=== PATIENT | male | born 1960 ===

== ENCOUNTER 2016-07-05 11:29 | Inpatient (IN) | payer OTHER ==
[~2016-07-05] VITALS: Ht 180.3 cm; Wt 106.0 kg
[2016-07-05] MEDS ORDERED: SODIUM CHLORIDE 0.9% 1L BAG IV* STA (11:33)
[2016-07-05] MEDS ORDERED: CEFEPIME 2GM/50 ML (PMX) 50 ML IVPB STA (11:33)
[2016-07-05] MEDS ORDERED: DEXAMETHASONE 10 MG/ML 1 ML INJ IV ONE (12:00)
[2016-07-05] MEDS ORDERED: VANCOMYCIN 1 GM (PMX) 250 ML IVPB ONE (12:00)
--- NOTE | 2016-07-05 12:05 | RADRPT ---
PROCEDURE: XR Chest. CLINICAL INDICATION: Chest pain TECHNIQUE: Single frontal view of the chest. COMPARISON: No priorchest radiograph. FINDINGS: The lungs are clear. No pleural effusion or pneumothorax. Heart size is magnified. No acute osseous abnormalities. IMPRESSION: No acute abnormalities. RPTAT: AADD .José Miguel Lowe MD, MD Date Time Electronically viewed and signed by .José Miguel Lowe MD, MD on 07/05/2016 12:05 .B/
[2016-07-05 12:56] LABS: BASOPHILS % 0.1 % (0.0-2.0); HEMATOCRIT 37.1 % (42.0-52.0); HEMOGLOBIN 12.9 g/dl (14.0-18.0); LYMPHOCYTES # 0.8 10^3/ul (0.8-2.9); MEAN CORPUSCULAR HEMOGLOBIN 29.3 pg (29.0-33.0); MEAN CORPUSCULAR VOLUME 83.7 fl (82.0-101.0); MONOCYTE # 1.9 10^3/ul (0.3-0.9); NEUTROPHIL # 24.2 10^3/ul (1.6-7.5); NEUTROPHILS % 89.9 % (39.0-77.0); PLATELET COUNT 186 10^3/UL (140-440); RED BLOOD COUNT 4.42 10^6/ul (4.70-6.10); RED CELL DISTRIBUTION WIDTH 14.2 % (11.5-14.5); UNCORRECTED WBC 26.9 10^3/ul (4.8-10.8); WHITE BLOOD COUNT 26.9 10^3/ul (4.8-10.8)
[2016-07-05 12:58] LABS: CONDITION 1; LH ANALYZER COMMENTS 1; SUSPECT 1
[2016-07-05 13:09] LABS: ALBUMIN 3.2 g/dl (3.3-4.9)
[2016-07-05 13:10] LABS: INR 1.17; POTASSIUM 4.6 mmol/L (3.5-5.1); PT RATIO 1.2
[2016-07-05 13:11] LABS: PARTIAL THROMBOPLASTIN TIME 33.7 Sec (25.0-35.0)
[2016-07-05 13:12] LABS: ALBUMIN/GLOBULIN RATIO 0.71; BILIRUBIN,INDIRECT 0.2 mg/dl (0-1.1); BILIRUBIN,TOTAL 0.2 mg/dl (0.2-1.3); CREATININE 5.25 mg/dl (0.61-1.24); TOTAL PROTEIN 7.7 g/dl (6.1-8.1)
[2016-07-05 13:13] LABS: CALCIUM 8.7 mg/dl (8.4-10.2)
[2016-07-05 13:25] LABS: TROPONIN-I 0.043 ng/ml (0.00-0.12)
--- NOTE | 2016-07-05 14:36 | RADRPT ---
PROCEDURE: CT facial bones CLINICAL INDICATION: Facial swelling and pain. Cellulitis. TECHNIQUE: Multiphase CT scan of the face was performed in the axial plane. Coronal and sagittal re-formations were performed. The calculated radiation dose measures 527.07 mGy centimeters. The CTD I measures 29.54 mGy One or more of the following dose reduction techniques were used: Automated exposure control. Adjustment of the mA and/or kV according to patient size. Use of iterative reconstruction technique. COMPARISON: None FINDINGS: There is diffuse symmetric soft tissue swelling and subcutaneous fatty stranding of the face. There are multiple mildly prominent lymph nodes in bilateral neck. The mandible is identified demonstrati ng no evidence of fracture or bony dysplasia. The mid face and bony orbits demonstrate no evidence of acute fracture. Evaluation of the orbits demonstrates the globes to be normal in their size, sha pe, and attenuation bilaterally. No definite intra or extraconal soft tissue masses are seen. The optic nerve and nerve sheath complexes bilaterally appear unremarkable. Moderate mucosal disease is seen in the frontal, ethmoid, right maxillary and right sphenoid sinuses. Mild mucosal thickening is seen in the left maxillary and left sphenoid sinuses. There is no air-fluid level in the paranasa l sinuses. IMPRESSION: 1. Diffuse symmetric soft tissue swelling and subcutaneous fatty stranding of the face. 2. Moderate mucosal disease in paranasal sinuses. No air-fluid level is seen to suggest acute sinu sitis. 3. No periodontal abscess. 4. Multiple mildly prominent lymph nodes in bilateral neck. RPTAT: BB .Dudley Terrell MD, MD Date Time Electronically viewed and signed by .Dudley Terrell MD, on 07/05/2016 14:35 .O/
--- NOTE | 2016-07-05 15:18 | ERA ---
ER Documentation Chief Complaint Date/Time DATE: 07/05/16 TIME: 15:13 Chief Complaint BIB RA FOR EVAL OF BILAT EYE AND FACE SWELLING AND REDNESS HPI Patient is a 55-year-old male he reports swelling of his entire face that started today. He states that he had noticed some crusting on his cheek over the last couple days but when he went to bed he was normal last night. He says that he can see out of his eyes but they are both a little blurry. He did not know that he was running a fever until he got here. He says he is not sure what might be causing this on his face. He says it is somewhat painful. He denies any chest pain, shortness of breath, sore throat, or otalgia. He says earlier he felt like his tongue was a little bit swollen but it does not feel that way anymore. He is able to tolerate his own secretions. He denies any abdominal pain, nausea, vomiting, or diarrhea. He denies any sick contacts. Nothing seems to make this better or worse. ROS All systems reviewed and are negative except as per history of present illness. Medications Home Meds No Active Prescriptions or Reported Meds Allergies Allergies: Coded Allergies: No Known Allergy (Unverified , 07/05/16) PMhx/Soc Hx Miscellaneous Medical Probl: Yes (HEP C) Hx Alcohol Use: No Hx Substance Use: No Hx Tobacco Use: Yes Smoking Status: Current every day smoker FmHx Family History: diabetes Physical Exam Vitals Vital Signs Date Time Temp Pulse Resp B/P Pulse Ox O2 Delivery O2 Flow Rate FiO2 07/05/16 15:12 100.8 07/05/16 14:30 102 19 144/83 96 Room Air 07/05/16 11:41 102.9 110 20 135/70 99 07/05/16 11:41 Nasal Cannula 2 Physical Exam Const: [] Head: Atraumatic Eyes: Normal Conjunctiva ENT: Normal External Ears, Nose and Mouth. Neck: Full range of motion..~ No meningismus. Resp: Clear to auscultation bilaterally Cardio: Regular rate and rhythm, no murmurs Abd: Soft, non tender, non distended. Normal bowel sounds Skin: No petechiae or rashes Back: No midline or flank tenderness Ext: No cyanosis, or edema Neur: Awake and alert Psych: Normal Mood and Affect Result Diagram: 07/05/16 1235 07/05/16 1235 Results 24 hrs Laboratory Tests Test 07/05/16 12:35 Activated Partial Thromboplast Time 33.7Sec Alanine Aminotransferase (ALT/SGPT) 48IU/L Albumin 3.2g/dl Albumin/Globulin Ratio 0.71 Alkaline Phosphatase 100IU/L Anion Gap 21 Aspartate Amino Transf (AST/SGOT) 117IU/L Basophils # 0.010^3/ul Basophils % 0.1% Blood Urea Nitrogen 102mg/dl Calcium Level 8.7mg/dl Carbon Dioxide Level 17mmol/L Chloride Level 95mmol/L Creatinine 5.25mg/dl Direct Bilirubin 0.00mg/dl Eosinophils # 0.010^3/ul Eosinophils % 0.0% Globulin 4.50g/dl Glucose Level 125mg/dl Hematocrit 37.1% Hemoglobin 12.9g/dl INR International Normalized Ratio 1.17 Indirect Bilirubin 0.2mg/dl Lactic Acid Level 0.9mmol/L Lymphocytes # 0.810^3/ul Lymphocytes % 3.0% Mean Corpuscular Hemoglobin 29.3pg Mean Corpuscular Hemoglobin Concent 35.0g/dl Mean Corpuscular Volume 83.7fl Mean Platelet Volume 8.0fl Monocytes # 1.910^3/ul Monocytes % 7.0% Neutrophils # 24.210^3/ul Neutrophils % 89.9% Nucleated Red Blood Cells # 0.010^3/ul Nucleated Red Blood Cells % 0.0/100WBC Platelet Count 02716^3/UL Potassium Level 4.6mmol/L Prothrombin Time 15.0Sec Prothrombin Time Ratio 1.2 Red Blood Count 4.4210^6/ul Red Cell Distribution Width 14.2% Sodium Level 128mmol/L Total Bilirubin 0.2mg/dl Total Protein 7.7g/dl Troponin I 0.043ng/ml White Blood Count 26.910^3/ul Current Medications Medications (Trade) Dose Ordered Sig/Shirin Route PRN Reason Start Time Stop Time Status Last Admin Dose Admin Sodium Chloride 3100 ml 3,100 ml BOLUS OVER 2 HOURS STAT IV* 07/05/16 11:33 07/05/16 11:38 DC 07/05/16 13:41 Cefepime HCl 50 ml @ 100 mls/hr ONCE STAT IVPB 07/05/16 11:33 07/05/16 12:02 DC 07/05/16 13:41 Vancomycin HCl (Vancocin) 250 ml @ 125 mls/hr ONCE ONCE IVPB 07/05/16 12:00 07/05/16 13:59 DC 07/05/16 14:31 Dexamethasone (Decadron) 6 mg ONCE ONCE IV 07/05/16 12:00 07/05/16 12:01 DC 07/05/16 13:41 Procedures/MDM EKG: Rate/Rhythm: [Normal Sinus Rhythm at 100 bpm QRS, ST, T-waves: No changes consistent w/ acute ischemia Impression: No evidence of ischemia or arrhythmia 1515: Patient remains hemodynamically stable. There is no significant change in his exam. His airway remains patent. I will speak with the hospitalist about admission. Departure Diagnosis: Primary Impression: Cellulitis diffuse, face Additional Impressions: Hepatitis C Qualified Code: B18.2 - Chronic hepatitis C without hepatic coma Renal failure Condition: KEIRA Page Jul 05, 2016 15:18
[2016-07-05] MEDS ORDERED: IBUPROFEN 800 MG TAB PO ONE (15:30)
[2016-07-05] MEDS ORDERED: ACETAMINOPHEN 325 MG TAB PO PRN ×2 (15:30→17:30)
[2016-07-05] MEDS ORDERED: ONDANSETRON 4 MG INJ IV PRN ×2 (15:30→17:30)
[2016-07-05] MEDS ORDERED: PIPER-TAZO 3.375 GM IV (PMX) 100 ML IVPB SCH (17:30)
[2016-07-05] MEDS ORDERED: VANCOMYCIN IV PER PHARMACY XX SCH (17:30)
[2016-07-05 18:09] LABS: ADD UMIC YES; URINE BILIRUBIN (Dip) 1+ (NEGATIVE); URINE BLOOD (Dip) 3+ (NEGATIVE); URINE GLUCOSE (Dip) NEGATIVE (NEGATIVE); URINE KETONES (Dip) TRACE (NEGATIVE); URINE LEUKOCYTE ESTERASE (Dip) TRACE (NEGATIVE); URINE NITRITE (Dip) NEGATIVE (NEGATIVE); URINE TOTAL PROTEIN (Dip) 4+ (NEGATIVE); URINE UROBILINOGEN (Dip) 0.2 E.U./dL (0.1-1.0)
[2016-07-05 18:53] LABS: URINE COLOR DARK YELLOW (YELLOW)
[2016-07-05 18:57] LABS: BACTERIA,URINE MODERATE; TRANSITIONAL EPI CELLS,URINE MANY; URINE RBCS >200 /HPF ([, 0])
[2016-07-05 18:58] LABS: ICTOTEST NEGATIVE (NEGATIVE)
--- NOTE | 2016-07-05 19:01 | RADRPT ---
PROCEDURE: Renal US. CLINICAL INDICATION: Acute kidney injury. TECHNIQUE: Multiple sonographic images of the kidneys were obtained. The images were reviewed on a PACS workstation. COMPARISON: No prior studies are available for comparison. FINDINGS: The kidneys are well visualized. The right kidney measures 13.2 x 6.8 x 7.1 cm. The left kidney jim ures 14.0 x 7.4 x 7.7 cm. There are no focal areas of abnormal echogenicity. There is no evidence fo r obstructive uropathy. IMPRESSION: 1. Normal appearance of the kidneys. RPTAT: HTAR .Julius Leahy MD, MD Date Time Electronically viewed and signed by .Julius Leahy MD, on 07/05/2016 19:01 .R/
[2016-07-05 19:59] LABS: POTASSIUM,URINE RANDOM 49.8 mmol/L (25-125)
[2016-07-05] MEDS: SOD CHLORIDE 0.9% 1,000 ML IV SCH (20:54)
[2016-07-05 20:58] VITALS: TEMP 98.4
[2016-07-05 22:29] VITALS: Ht 180.3 cm; Wt 106.0 kg
[2016-07-05 22:45] VITALS: BP 158/85; RESP 18
--- NOTE | 2016-07-05 22:45 | HP ---
Date/Time of Note Date/Time of Note DATE: 07/05/16 TIME: 21:21 Assessment/Plan VTE Prophylaxis VTE Prophylaxis Intervention: heparin Assessment/Plan Assessment/Plan IMPRESSION 1. Sepsis, as evidenced by fever and tachycardia 2/2 facial cellulitis 2. Cellulitis of face 3. Presumed acute on CKD 4. Metabolic Acidosis PLAN Admit to tele Broad spectrum abx Blood, urine and eye discharge culture IV fluid Nephrology and ID consult Renal u/s and urine electrolytes Avoid nephrotoxins and renally dose all meds. HPI/ROS Admit Date/Time Admit Date/Time Jul 05, 2016 at 15:12 Hx of Present Illness Patient is a 55-year-old male who presented to ER with facial swelling, crusting and redness. He said he first noticed it about 3 days ago. Denied similar conditions in the past. He denied fever, chills, chest pain, shortness of breath, N/V or diarrhea. He appears disheveled and said he is "paula homeless ". ER course: he was found to be febrile with temp of 102.9 and tachycardic with a HR of 110. Lab shows WBC of 27K, cr 5.2, BUN 100 and HCO3 of 17. He denied hx of renal disease when told about lab findings and said it is probably because he was dehydrated. he was given IV fluid, Cefepime, Vancomycin and zofran. Of note, he was also given 800mg of Ibuprofen. CT face showed soft tissue swelling , multiple mildly prominent bilateral neck lymph nodes and moderate mucosal disease in paranasal sinuses. CXR is clear and UA shows 4+ protein. . PMH/Family/Social Past Medical History Medical History: no pertinent history Past Surgical History Past Surgical Hx: other (right leg I&D) Social History Alcohol Use: occasionally Smoking Status: Current every day smoker Drug Use: none Exam/Review of Systems Vital Signs Vitals Vital Signs Date Time Temp Pulse Resp B/P Pulse Ox O2 Delivery O2 Flow Rate FiO2 07/05/16 20:58 98.4 56 16 141/67 97 Room Air 07/05/16 11:41 2 Exam Constitutional: alert, other (discheveled and appears tired. he is cooperative) Head: atraumatic, normocephalic Eyes: other (periorbital swelling with yellowish discharge from both eyes) ENMT: other (facial erythema, swelling and crusting ) Respiratory: clear to auscultation, normal air movement Cardiovascular: other (tachycardic with regular rhythm) Gastrointestinal: non-tender, soft Extremities: other (right calf with well healed old scar ) Labs Result Diagram: 07/05/16 1235 07/05/16 1235 Medications Medications Current Medications Ondansetron HCl (Zofran Inj) 4 mg Q6H PRN IV NAUSEA AND/OR VOMITING; Start 07/05 at 17:30 Acetaminophen (Tylenol Tab) 650 mg Q6H PRN PO PAIN LEVEL 1-3 OR FEVER; Start at 17:30 Morphine Sulfate (morphine) 4 mg Q4H PRN IV pain; Start 07/05/16 at 17:30 Heparin Sodium (Porcine) 5000 unit 5,000 unit Q12 SC ; Start 07/05/16 at 21:00 Piperacillin Sod/ Tazobactam Sod 50 ml @ 100 mls/hr Q8 IVPB ; Start 07/05/16 at 22:00 Sodium Chloride (NS) 1,000 ml @ 100 mls/hr Q10H IV Last administered on t 20:54; Admin Dose 100 MLS/HR; Start 07/05/16 at 18:30 DAREK CALLES MD Jul 05, 2016 22:30
[2016-07-05] MEDS: HEPARIN 5,000 UNIT/0.5 ML SYG SC SCH (23:13)
[2016-07-05] MEDS: PIPER-TAZO 2.25 GM (PMX) 50 ML IVPB SCH (23:20)
[2016-07-05 23:30] VITALS: BP 145/78; PULSE 71; RESP 20
[2016-07-06] MEDS: SOD CHLORIDE 0.9% 1,000 ML IV SCH ×2 (04:30→14:30)
[2016-07-06] MEDS: PIPER-TAZO 2.25 GM (PMX) 50 ML IVPB SCH ×3 (06:00→21:32)
--- NOTE | 2016-07-06 07:26 | CONS ---
Date/Time of Note Date/Time of Note DATE: 07/06/16 TIME: 07:15 Assessment/Plan Assessment/Plan Chief Complaint/Hosp Course 1. Facial cellultiis 2. Acute renal failure 3. metabolic acidosis from 2 4. Leukocytosis 5. Abnormal urinary sediment 6. chronic smoker 7. chronic hepatits c 8. Hypoalbuminemia Facial cellultis, sepsis and dehyration explains part of this but consider post infectious gn, hepatits c related nephropathy in addition. Patient with hypoalbuminemia and may have nephrotic range proteinuria. Impact of antibiotics ahd hyration remains to be seen. Rec: c3,c4, iv hydration, antibiotics repeat urine urine culture follow up labs liver ultrasound to evaluate for hepatoma 'alpha feto protein may need renal bx if doesn't turn around with therapy. Problems: Consultation Date/Type/Reason Admit Date/Time Jul 05, 2016 at 15:12 Type of Consultation: Nephrology Reason for Consultation Evaluation of renal failure Hx of Present Illness 55 homeless male unaware of prior renal disease presents with 1 weeks of chills , facial cellulitis and abnormal renal function noted below. He has no gross hematuria, flank pain, dysuria or hesitancy. Renal ultrasound normal and urine analysis abnormal with 4 +proteinuria, marked microhematuria and 3+ blood and pyuria and no casts noted. He stated he was dehyrrated on admission and urinary sodium was 17. He has no joint pains, no sob or other pain. IV fluid and antibiotics initiated but iv came out and awaiting pic line placement as he states he was a frequent blood donor. He has a history of hepatits c but denies iv drug use and denied alcohol use of significance. He is a .5 ppd smoker. He was admitted for acute renal failure, facial cellulitis and renal consult requested. Constitutional: chills, febrile Eyes: redness Respiratory: No cough, No no complaints, No other, No pain, No pleuritic pain, No shortness of breath, No sputum, No wheezing Cardiovascular: No chest pain, No edema, No lightheadedness, No no complaints, No orthopenea, No other, No palpitations, No paroxysmal nocturnal dyspnea Gastrointestinal: diarrhea Genitourinary: No bleeding, No discharge, No dysuria, No flank pain, No hematuria, No no complaints, No other Musculoskeletal: No back pain, No bone/joint pain, No neck pain, No no complaints, No other, No restricted range of motion, No swelling Neurologic: No confusion, No dizziness, No focal-weakness, No headache, No no complaints, No other, No seizure, No syncope Endocrine: No dry skin, No no complaints, No other, No polydypsia, No polyuria , No temp intolerance Lymphatic: No adenopathy, No lymphadema, No no complaints, No other, No tender nodes Past Medical History Medical History: no pertinent history Past Surgical History Past Surgical Hx: other (right leg I&D) Family History Significant Family History: no pertinent family hx Social History Alcohol Use: occasionally Smoking Status: Current every day smoker Drug Use: none Exam/Review of Systems Vital Signs Vitals Vital Signs Date Time Temp Pulse Resp B/P Pulse Ox O2 Delivery O2 Flow Rate FiO2 07/05/16 23:30 97.2 71 20 145/78 07/05/16 22:45 99 07/05/16 20:58 Room Air 07/05/16 11:41 2 Intake and Output 07/05/16 07/05/16 07/06/16 15:00 23:00 07:00 Intake Total 970 ml Balance 970 ml Exam Constitutional: alert, well developed Psych: no complaints Head: normocephalic, other ENMT: other (redness of face and swelling diffusely) Cardiovascular: nl pulses, regular rate and rhythm Gastrointestinal: nl liver, spleen, non-tender, soft Extremities: No calf tenderness, No clubbing, No cyanosis, No edema, No normal pulses, No other, No palpable cord, No pitting pedal edema, No tenderness Neurological: No K [employer] II-XII intact, No DTR's symmetric, No confused, No focal weakness, No lethargic, No nl mental status, No nl speech, No nl strength, No numbness, No other, No reflexes, No unresponsive Results Result Diagram: 07/05/16 1235 07/05/16 1235 Results 24 hrs Laboratory Tests Test 07/05/16 12:35 07/05/16 17:25 07/05/16 18:03 07/05/16 19:00 Activated Partial Thromboplast Time 33.7 Alanine Aminotransferase (ALT/SGPT) 48 Albumin 3.2 L Albumin/Globulin Ratio 0.71 Alkaline Phosphatase 100 Anion Gap 21 H Aspartate Amino Transf (AST/SGOT) 117 H Basophils # 0.0 Basophils % 0.1 Blood Urea Nitrogen 102 H Calcium Level 8.7 Carbon Dioxide Level 17 L Chloride Level 95 L Creatinine 5.25 H Direct Bilirubin 0.00 Eosinophils # 0.0 Eosinophils % 0.0 Globulin 4.50 H Glucose Level 125 Hematocrit 37.1 L Hemoglobin 12.9 L INR International Normalized Ratio 1.17 Indirect Bilirubin 0.2 Lactic Acid Level 0.9 0.9 0.9 Lymphocytes # 0.8 Lymphocytes % 3.0 L Mean Corpuscular Hemoglobin 29.3 Mean Corpuscular Hemoglobin Concent 35.0 Mean Corpuscular Volume 83.7 Mean Platelet Volume 8.0 Monocytes # 1.9 H Monocytes % 7.0 Neutrophils # 24.2 H Neutrophils % 89.9 H Nucleated Red Blood Cells # 0.0 Nucleated Red Blood Cells % 0.0 Platelet Count 186 Potassium Level 4.6 Prothrombin Time 15.0 H Prothrombin Time Ratio 1.2 Red Blood Count 4.42 L Red Cell Distribution Width 14.2 Sodium Level 128 L Total Bilirubin 0.2 Total Protein 7.7 Troponin I 0.043 White Blood Count 26.9 H Urine Bacteria MODERATE Urine Bilirubin 1+ H Urine Clarity SLIGHTLY CLOUDY Urine Color DARK YELLOW Urine Glucose NEGATIVE Urine Hemoglobin 3+ H Urine Hyaline Casts FEW Urine Ictotest NEGATIVE Urine Ketones TRACE Urine Leukocyte Esterase TRACE H Urine Microscopic RBC >200 Urine Microscopic WBC 5-10 Urine Nitrite NEGATIVE Urine Random Potassium 49.8 Urine Random Sodium 17 L Urine Specific Leopold >=1.030 H Urine Total Protein 4+ H Urine Transitional Epithelial Cells MANY Urine Urobilinogen 0.2 E.U./dL Urine pH 5.0 Medications Medications Current Medications Ondansetron HCl (Zofran Inj) 4 mg Q6H PRN IV NAUSEA AND/OR VOMITING; Start 07/05 at 17:30 Acetaminophen (Tylenol Tab) 650 mg Q6H PRN PO PAIN LEVEL 1-3 OR FEVER; Start at 17:30 Morphine Sulfate (morphine) 4 mg Q4H PRN IV pain; Start 07/05/16 at 17:30 Heparin Sodium (Porcine) 5000 unit 5,000 unit Q12 SC Last administered on t 23:13; Admin Dose 5,000 UNIT; Start 07/05/16 at 21:00 Piperacillin Sod/ Tazobactam Sod 50 ml @ 100 mls/hr Q8 IVPB Last administered on 07/05/16 23:20; Admin Dose 100 MLS/HR; Start 07/05/16 at 22:00 Sodium Chloride (NS) 1,000 ml @ 100 mls/hr Q10H IV Last administered on 20:54; Admin Dose 100 MLS/HR; Start 07/05/16 at 18:30 SEVERIANO BENNETT MD Jul 06, 2016 07:26
[2016-07-06 07:35] VITALS: BP 125/78; RESP 20
[2016-07-06] MEDS ORDERED: VANCOMYCIN 1 GM in NS 250 ML IVPB SCH (08:30)
[2016-07-06] MEDS: HEPARIN 5,000 UNIT/0.5 ML SYG SC SCH ×2 (08:50→21:39)
[2016-07-06 09:29] LABS: HEMATOCRIT 38.6 % (42.0-52.0); MEAN CORPUSCULAR HEMOGLOBIN 28.8 pg (29.0-33.0); MEAN CORPUSCULAR HGB CONC 33.7 g/dl (32.0-37.0); MEAN CORPUSCULAR VOLUME 85.3 fl (82.0-101.0); MEAN PLATELET VOLUME 8.4 fl (7.4-10.4); PLATELET COUNT 200 10^3/UL (140-440); RED BLOOD COUNT 4.52 10^6/ul (4.70-6.10); RED CELL DISTRIBUTION WIDTH 14.8 % (11.5-14.5); UNCORRECTED WBC 31.6 10^3/ul (4.8-10.8); WHITE BLOOD COUNT 31.6 10^3/ul (4.8-10.8)
[2016-07-06 09:32] LABS: CONDITION 1; LH ANALYZER COMMENTS 1; SUSPECT 1
[2016-07-06 09:38] LABS: POTASSIUM 4.6 mmol/L (3.5-5.1)
[2016-07-06 09:40] LABS: ALBUMIN/GLOBULIN RATIO 0.71; CREATININE 5.58 mg/dl (0.61-1.24); TOTAL PROTEIN 7.2 g/dl (6.1-8.1)
[2016-07-06 09:41] LABS: CALCIUM 8.9 mg/dl (8.4-10.2); MAGNESIUM 2.7 mg/dl (1.7-2.5)
[2016-07-06 10:56] LABS: COMPLEMENT C3 < 40 mg/dl (88-165)
[2016-07-06 10:57] LABS: LYMPHOCYTES # 0.9 10^3/ul (0.8-2.9); MONOCYTE # 0.9 10^3/ul (0.3-0.9); NEUTROPHIL # 28.8 10^3/ul (1.6-7.5)
[2016-07-06 10:57] LABS: COMPLEMENT C4 25 mg/dl (14-44)
[2016-07-06 11:05] LABS: PHOSPHORUS 8.3 mg/dl (2.5-4.9)
[2016-07-06] MEDS ORDERED: LIDOCAINE 1% (MDV) 20 ML INJ SC ONE (12:30)
[2016-07-06] MEDS ORDERED: LEVOFLOXACIN 750 MG TABLET PO ONE (16:00)
[2016-07-06 19:41] VITALS: BP 136/88; RESP 20
[2016-07-06 20:00] VITALS: BP 136/88; PULSE 58; RESP 20
--- NOTE | 2016-07-06 21:02 | CONS ---
DATE OF ADMISSION: 07/05/2016 DATE OF CONSULTATION: 07/06/2016 TYPE OF CONSULTATION: Infectious Diseases. REASON FOR CONSULTATION: Antibiotic management. HISTORY OF PRESENT ILLNESS: Chet Montoya is a 55-year-old male, who presented to the [facility] with facial swelling, crusting, and redness. This began about 3 days prior to admission. He neve r had this in the past. He denies fever or chills, or shortness of breath. In the ER, he was found to be afebrile with a temperature 102.9, heart rate of 110. His white count was 26.9, H and H of 1 2.9 and 37.1, platelet count 186,000. Today his white count is up to 31.6, BUN and creatinine are 1 02/5.25. Urine is negative for nitrite, trace leukocyte esterase, greater than 200 RBCs per high-po wer field, but only 5-10 white cells per high-power field. His blood cultures are negative. Urine cultures negative. Stool has coliforms. His C. difficile is negative. He had a facial CT scan, wh ich showed diffuse symmetric soft tissue swelling and subcutaneous fatty stranding of phase, moderat e mucosal disease in the paranasal sinuses. No air fluid level to suggest acute sinusitis. No windy odontal abscess. Multiple mild prominent lymph nodes in the neck bilaterally. Chest x-ray: No acu te abnormalities. Renal ultrasound: Normal appearance of the kidneys. The patient was begun on va ncomycin and Zosyn. He was seen in consultation by Dr. Calero because of acute renal failure, wit h BUN and creatinine of 102/5.2. He notes facial cellulitis, metabolic acidosis. PAST SURGICAL HISTORY: He had an I and D of his right leg. SOCIAL HISTORY: He is an everyday smoker. He drinks alcohol occasionally. ALLERGIES: NONE TO PENICILLIN, SULFA, OR FOODS. MEDICATIONS: Per chart. REVIEW OF SYSTEMS: As per HPI. PHYSICAL EXAMINATION: GENERAL: The patient is a well-developed, disheveled, tired-appearing male, who is awake, responsiv e, in no acute distress. VITAL SIGNS: Stable. He is afebrile. HEENT: Within normal limits. SKIN: Without generalized rash. He has facial erythema, with swelling and crusting bilaterally. NECK: Supple. LYMPH NODES: None palpable. CHEST: Decreased breath sounds at the bases. HEART: Without murmur or gallop. He is tachycardic. ABDOMEN: Soft, nontender, without organosplenomegaly or masses. EXTREMITIES: Without cyanosis, clubbing, or edema. RECTAL AND GENITAL: Deferred. NEUROLOGIC: No focal neurological abnormality. IMPRESSION AND PLAN: The patient has significant cellulitis with leukocytosis. He also has acute r enal failure, probably related to sepsis. We will continue him on his vancomycin and Zosyn. He ebonie l be followed by Renal, as well. His BUN and creatinine has to come down significantly, or he maybe a candidate for dialysis. I want to thank Dr. Ward, the hospitalist, for asking me to see this gen neftaly in consultation. Dictated By: CLEMENTINA BORREGO MD, JD/JACOB Conf#: [id number] DID#: [id number]
[2016-07-06] MEDS: NICOTINE (21 MG/24 HR) PATCH TRANSDERM SCH (21:40)
[2016-07-06] MEDS: HYDROCODONE/APAP (5/325) TAB PO PRN (21:42)
[2016-07-06] MEDS: CEPHALEXIN 500 MG CAP PO SCH (23:10)
--- NOTE | 2016-07-06 23:59 | PN ---
Date/Time of Note Date/Time of Note DATE: 07/06/16 TIME: 23:59 Assessment/Plan VTE Prophylaxis VTE Prophylaxis Intervention: heparin Assessment/Plan Assessment/Plan IMPRESSION 1. Sepsis, as evidenced by fever and tachycardia 2/2 facial cellulitis 2. Cellulitis of face 3. Presumed acute on CKD 4. Metabolic Acidosis PLAN Admit to tele Broad spectrum abx Blood, urine and eye discharge culture IV fluid Appreciate Nephrology and ID consult Renal u/s and urine electrolytes Avoid nephrotoxins and renally dose all meds. Subjective 24 Hr Interval Summary Free Text/Dictation feeling better Exam/Review of Systems Vital Signs Vitals Vital Signs Date Time Temp Pulse Resp B/P Pulse Ox O2 Delivery O2 Flow Rate FiO2 07/06/16 19:41 97.7 58 20 136/88 98 07/05/16 20:58 Room Air 07/05/16 11:41 2 Intake and Output 07/05/16 07/05/16 07/06/16 15:00 23:00 07:00 Intake Total 970 ml Balance 970 ml Exam Constitutional: alert, other (discheveled and appears tired. he is cooperative) Head: atraumatic, normocephalic Eyes: other (periorbital swelling with yellowish discharge from both eyes) ENMT: other (facial erythema, swelling and crusting ) Respiratory: clear to auscultation, normal air movement Cardiovascular: other (tachycardic with regular rhythm) Gastrointestinal: non-tender, soft Extremities: other (right calf with well healed old scar ) Results Result Diagram: 07/06/16 0830 07/06/16 0829 Results 24 hrs Laboratory Tests Test 07/06/16 08:29 07/06/16 08:30 Alanine Aminotransferase (ALT/SGPT) 46 Albumin 3.0 L Albumin/Globulin Ratio 0.71 Alkaline Phosphatase 103 Anion Gap 22 H Aspartate Amino Transf (AST/SGOT) 103 H Blood Urea Nitrogen 113 H Calcium Level 8.9 Carbon Dioxide Level 16 L Chloride Level 101 Complement C3 < 40 L Complement C4 25 Creatinine 5.58 H Direct Bilirubin 0.00 Erythrocyte Sedimentation Rate 80 H Globulin 4.20 H Glucose Level 181 Indirect Bilirubin 0.0 Magnesium Level 2.7 H Phosphorus Level 8.3 H Potassium Level 4.6 Sodium Level 134 L Total Bilirubin 0.0 L Total Protein 7.2 Band Neutrophils % 3.0 Basophils # Basophils % Blood Morphology Comment Differential Comment MANUAL DIFF Eosinophils # Eosinophils % Hematocrit 38.6 L Hemoglobin 13.0 L Lymphocytes # 0.9 Lymphocytes % 3.0 L Mean Corpuscular Hemoglobin 28.8 L Mean Corpuscular Hemoglobin Concent 33.7 Mean Corpuscular Volume 85.3 Mean Platelet Volume 8.4 Monocytes # 0.9 Monocytes % 3.0 Neutrophils # 28.8 H Neutrophils % 91.0 H Nucleated Red Blood Cells # Nucleated Red Blood Cells % Platelet Count 200 Red Blood Count 4.52 L Red Cell Distribution Width 14.8 H White Blood Count 31.6 H Medications Medications Current Medications Ondansetron HCl (Zofran Inj) 4 mg Q6H PRN IV NAUSEA AND/OR VOMITING; Start 07/05 at 17:30 Acetaminophen (Tylenol Tab) 650 mg Q6H PRN PO PAIN LEVEL 1-3 OR FEVER; Start at 17:30 Morphine Sulfate (morphine) 4 mg Q4H PRN IV pain; Start 07/05/16 at 17:30 Heparin Sodium (Porcine) 5000 unit 5,000 unit Q12 SC Last administered on 21:39; Admin Dose 5,000 UNIT; Start 07/05/16 at 21:00 Piperacillin Sod/ Tazobactam Sod 50 ml @ 100 mls/hr Q8 IVPB Last administered on 07/05/16 23:20; Admin Dose 100 MLS/HR; Start 07/05/16 at 22:00 Sodium Chloride 1,000 ml @ 100 mls/hr Q10H IV Last administered on 07/05/16 20 :54; Admin Dose 100 MLS/HR; Start 07/05/16 at 18:30 Vancomycin HCl (Vancocin) 250 ml @ 125 mls/hr ONCE IVPB ; Start 07/06/16 at 08: 30; Stop 07/07/16 at 04:00 Cephalexin (Keflex) 500 mg Q6 PO Last administered on 07/06/16 23:10; Admin Dose 500 MG; Start 07/06/16 at 20:00 Nicotine (Nicoderm 21 Mg/ 24hr) 1 patch DAILY TRANSDERM Last administered on 21:40; Admin Dose 1 PATCH; Start 07/06/16 at 19:30 Acetaminophen/ Hydrocodone Bitart ([place] (5/325)) 1 tab Q4H PRN PO moderate pain Last administered on 07/06/16t 21:42; Admin Dose 1 TAB; Start 07/06/16 at 21 :30 DAREK CALLES MD Jul 06, 2016 23:59
[2016-07-07] MEDS: SOD CHLORIDE 0.9% 1,000 ML IV SCH ×3 (00:30→20:30)
[2016-07-07] MEDS: CEPHALEXIN 500 MG CAP PO SCH ×3 (01:48→13:31)
[2016-07-07] MEDS: PIPER-TAZO 2.25 GM (PMX) 50 ML IVPB SCH ×3 (05:08→21:18)
[2016-07-07] MEDS: HYDROCODONE/APAP (5/325) TAB PO PRN ×2 (05:36→18:58)
[2016-07-07 06:38] LABS: HEMATOCRIT 37.6 % (42.0-52.0); HEMOGLOBIN 12.7 g/dl (14.0-18.0); MEAN CORPUSCULAR HEMOGLOBIN 28.8 pg (29.0-33.0); MEAN CORPUSCULAR HGB CONC 33.7 g/dl (32.0-37.0); MEAN CORPUSCULAR VOLUME 85.3 fl (82.0-101.0); PLATELET COUNT 218 10^3/UL (140-440); RED BLOOD COUNT 4.41 10^6/ul (4.70-6.10); RED CELL DISTRIBUTION WIDTH 14.9 % (11.5-14.5); UNCORRECTED WBC 39.3 10^3/ul (4.8-10.8); WHITE BLOOD COUNT 39.3 10^3/ul (4.8-10.8)
[2016-07-07 06:46] LABS: CONDITION 1; LH ANALYZER COMMENTS 1; SUSPECT 1
[2016-07-07 06:50] LABS: POTASSIUM 4.6 mmol/L (3.5-5.1)
[2016-07-07 06:52] LABS: CREATININE 4.61 mg/dl (0.61-1.24)
[2016-07-07 06:53] LABS: ALBUMIN/GLOBULIN RATIO 0.73; CALCIUM 8.8 mg/dl (8.4-10.2); TOTAL PROTEIN 7.1 g/dl (6.1-8.1)
[2016-07-07 07:06] LABS: ADD UMIC YES; URINE BILIRUBIN (Dip) NEGATIVE (NEGATIVE); URINE BLOOD (Dip) 3+ (NEGATIVE); URINE COLOR LT. YELLOW (YELLOW); URINE GLUCOSE (Dip) NEGATIVE (NEGATIVE); URINE KETONES (Dip) TRACE (NEGATIVE); URINE LEUKOCYTE ESTERASE (Dip) TRACE (NEGATIVE); URINE NITRITE (Dip) NEGATIVE (NEGATIVE); URINE TOTAL PROTEIN (Dip) 2+ (NEGATIVE); URINE UROBILINOGEN (Dip) 0.2 E.U./dL (0.1-1.0)
[2016-07-07 07:22] LABS: URINE RBCS >50 /HPF ([, 0])
[2016-07-07 07:23] LABS: BACTERIA,URINE MODERATE
[2016-07-07] MEDS: HEPARIN 5,000 UNIT/0.5 ML SYG SC SCH ×2 (09:00→21:14)
[2016-07-07 09:20] LABS: LYMPHOCYTES # 0.8 10^3/ul (0.8-2.9); MONOCYTE # 1.6 10^3/ul (0.3-0.9)
--- NOTE | 2016-07-07 09:43 | CONS ---
Date/Time of Note Date/Time of Note DATE: 07/07/16 TIME: 09:36 Assessment/Plan Assessment/Plan Chief Complaint/Hosp Course 1. Facial cellultiis 2. Acute renal failure 3. metabolic acidosis from 2 4. Leukocytosis 5. Abnormal urinary sediment 6. chronic smoker 7. chronic hepatits c 8. Hypoalbuminemia Facial cellultis, sepsis and dehyration explains part of this but consider post infectious gn, hepatits c related nephropathy in addition. Patient with hypoalbuminemia and may have nephrotic range proteinuria. Impact of antibiotics ahd hyration remains to be seen. Rec: c3,c4, iv hydration, antibiotics repeat urine urine culture follow up labs liver ultrasound to evaluate for hepatoma 'alpha feto protein may need renal bx if doesn't turn around with therapy. Problems: Additional Assessment/Plan Patient is hypocomplementemic which could certainly fit a post infectious gn which would be treated by treating existing infection. Blood cultures thus far negative. He also has hep c and can have associated membranous nephropathy, cryoglob. nephropathy but doubt the latter. His disproportionate heme positive urine and fact he was lying around we should get cpk to be sure not significant rhabdo which can also increase his transaminases. His metabolic acidosis warrants bicarb therapy temporarily. Renal bx. discussed with patient. Rec: cpk, repeat urine 24 hour urine protine and creatinine if complies folllow up labs continue antibiotics Consultation Date/Type/Reason Admit Date/Time Jul 05, 2016 at 15:12 Initial Consult Date Type of Consultation: Nephrology Reason for Consultation Renal insufficiency with active urine sediment 24 HR Interval Summary Free Text/Dictation I explained mild improvement in renal function but still active urine sediment with microhematuria, proteinuria and heme positivity. Exam/Review of Systems Vital Signs Vitals Vital Signs Date Time Temp Pulse Resp B/P Pulse Ox O2 Delivery O2 Flow Rate FiO2 07/06/16 20:00 97.7 58 20 136/88 98 Room Air 07/05/16 11:41 2 Intake and Output 07/06/16 07/06/16 07/07/16 15:00 23:00 07:00 Intake Total 1680 ml 360 ml Balance 1680 ml 360 ml Exam Constitutional: alert Psych: other (not appropriate responses to current situation with re: to his renal function) ENMT: other (less swollen) Cardiovascular: regular rate and rhythm Gastrointestinal: other (no edema), soft Results Result Diagram: 07/07/16 0529 07/07/16 0529 Results 24 hrs Laboratory Tests Test 07/07/16 05:29 Alanine Aminotransferase (ALT/SGPT) 52 Albumin 3.0 L Albumin/Globulin Ratio 0.73 Alkaline Phosphatase 110 Anion Gap 26 H Aspartate Amino Transf (AST/SGOT) 106 H Band Neutrophils % 15.0 H Basophils # Basophils % Blood Morphology Comment Blood Urea Nitrogen 126 H Calcium Level 8.8 Carbon Dioxide Level 14 L Chloride Level 102 Creatinine 4.61 H Differential Comment MANUAL DIFF Direct Bilirubin 0.00 Eosinophils # Eosinophils % Globulin 4.10 H Glucose Level 157 Hematocrit 37.6 L Hemoglobin 12.7 L Indirect Bilirubin 0.0 Lymphocytes # 0.8 Lymphocytes % 2.0 L Mean Corpuscular Hemoglobin 28.8 L Mean Corpuscular Hemoglobin Concent 33.7 Mean Corpuscular Volume 85.3 Mean Platelet Volume 9.0 Monocytes # 1.6 H Monocytes % 4.0 Neutrophils # 31.0 H Neutrophils % 79.0 H Nucleated Red Blood Cells # Nucleated Red Blood Cells % Platelet Count 218 Potassium Level 4.6 Red Blood Count 4.41 L Red Cell Distribution Width 14.9 H Sodium Level 137 Total Bilirubin 0.0 L Total Protein 7.1 White Blood Count 39.3 #H Medications Medications Current Medications Ondansetron HCl (Zofran Inj) 4 mg Q6H PRN IV NAUSEA AND/OR VOMITING; Start 07/05 at 17:30 Acetaminophen (Tylenol Tab) 650 mg Q6H PRN PO PAIN LEVEL 1-3 OR FEVER; Start at 17:30 Morphine Sulfate (morphine) 4 mg Q4H PRN IV pain; Start 07/05/16 at 17:30 Heparin Sodium (Porcine) 5000 unit 5,000 unit Q12 SC Last administered on 21:39; Admin Dose 5,000 UNIT; Start 07/05/16 at 21:00 Piperacillin Sod/ Tazobactam Sod 50 ml @ 100 mls/hr Q8 IVPB Last administered on 07/05/16 23:20; Admin Dose 100 MLS/HR; Start 07/05/16 at 22:00 Sodium Chloride (NS) 1,000 ml @ 100 mls/hr Q10H IV Last administered on 20:54; Admin Dose 100 MLS/HR; Start 07/05/16 at 18:30 Cephalexin (Keflex) 500 mg Q6 PO Last administered on 07/07/16 05:36; Admin Dose 500 MG; Start 07/06/16 at 20:00 Nicotine (Nicoderm 21 Mg/ 24hr) 1 patch DAILY TRANSDERM Last administered on 21:40; Admin Dose 1 PATCH; Start 07/06/16 at 19:30 Acetaminophen/ Hydrocodone Bitart ([place] (5/325)) 1 tab Q4H PRN PO moderate pain Last administered on 07/07/16 05:36; Admin Dose 1 TAB; Start 07/06/16 at 21 :30 SEVERIANO BENNETT MD Jul 07, 2016 09:43
[2016-07-07] MEDS: NICOTINE (21 MG/24 HR) PATCH TRANSDERM SCH (10:34)
[2016-07-07 12:14] LABS: CREATINE KINASE 48 IU/L (23-200)
[2016-07-07 12:33] LABS: TROPONIN-I < 0.010 ng/ml (0.00-0.12)
--- NOTE | 2016-07-07 15:49 | PN ---
Date/Time of Note Date/Time of Note DATE: 07/07/16 TIME: 15:44 Assessment/Plan VTE Prophylaxis VTE Prophylaxis Intervention: heparin Assessment/Plan Assessment/Plan 1. Sepsis, as evidenced by fever and tachycardia 2/2 facial cellulitis - continue with ID and ENT recs, continue with IV antibiotics - monitor acute changes - decadron 2. Cellulitis of face - see #1 3. Presumed acute on CKD - appreciate nephro recs, PSGN vs other etiologies 4. Metabolic Acidosis 2/2 #1 5. Psoriasis - steroids IV currently 6. GI ppx - pepcid 7. DVT ppx - heparin dispo -f/u recs. monitor for acute changes, as per clinical course. this progress note took greater than 40 minutes to complete Subjective 24 Hr Interval Summary Free Text/Dictation Patient had no overnight events. States that his vision is improving. Had a long discussion with the patient about the care plan. 20 minutes spent. Exam/Review of Systems Vital Signs Vitals Vital Signs Date Time Temp Pulse Resp B/P Pulse Ox O2 Delivery O2 Flow Rate FiO2 07/06/16 20:00 97.7 58 20 136/88 98 Room Air 07/05/16 11:41 2 Intake and Output 07/06/16 07/06/16 07/07/16 14:59 22:59 06:59 Intake Total 1680 ml 360 ml Balance 1680 ml 360 ml Exam Gen Apolinar: NAD, AAOx4 HEENT:facial erythema with skin sloughing, PERRLA, strabismus noted left eye, right circular skin lesion, no bruits/thrills appreciated NECK: supple, no thyromegaly THORAX: symmetrical, no obvious deformities CV: S1S2, RRR, no M/G/R Lungs: CTAB no W/C/R/R Abd: soft, NT/ND, +BS, no rebound, no guarding, neg HSM EXT: no edema, no ecchymosis, no clubbing, FROM Neuro: CN II-XII grossly intact, no focal deficits Psych: good mentation, alert and oriented, good mood and affect Skin: extensor surfaces of elbows with psoriatic changes/scaly Results Result Diagram: 07/07/16 0529 07/07/1629 Results 24 hrs Laboratory Tests Test 07/07/16 05:29 07/07/16 11:28 Alanine Aminotransferase (ALT/SGPT) 52 Albumin 3.0 L Albumin/Globulin Ratio 0.73 Alkaline Phosphatase 110 Anion Gap 26 H Aspartate Amino Transf (AST/SGOT) 106 H Band Neutrophils % 15.0 H Basophils # Basophils % Blood Morphology Comment Blood Urea Nitrogen 126 H Calcium Level 8.8 Carbon Dioxide Level 14 L Chloride Level 102 Creatinine 4.61 H Differential Comment MANUAL DIFF Direct Bilirubin 0.00 Eosinophils # Eosinophils % Globulin 4.10 H Glucose Level 157 Hematocrit 37.6 L Hemoglobin 12.7 L Indirect Bilirubin 0.0 Lymphocytes # 0.8 Lymphocytes % 2.0 L Mean Corpuscular Hemoglobin 28.8 L Mean Corpuscular Hemoglobin Concent 33.7 Mean Corpuscular Volume 85.3 Mean Platelet Volume 9.0 Monocytes # 1.6 H Monocytes % 4.0 Neutrophils # 31.0 H Neutrophils % 79.0 H Nucleated Red Blood Cells # Nucleated Red Blood Cells % Platelet Count 218 Potassium Level 4.6 Red Blood Count 4.41 L Red Cell Distribution Width 14.9 H Sodium Level 137 Total Bilirubin 0.0 L Total Protein 7.1 White Blood Count 39.3 #H Creatine Kinase 48 Creatine Kinase Index 8.8 Creatinine Kinase MB (Mass) 4.20 H Troponin I < 0.010 Medications Medications Current Medications Ondansetron HCl (Zofran Inj) 4 mg Q6H PRN IV NAUSEA AND/OR VOMITING; Start 07/05 at 17:30 Acetaminophen (Tylenol Tab) 650 mg Q6H PRN PO PAIN LEVEL 1-3 OR FEVER; Start at 17:30 Morphine Sulfate (morphine) 4 mg Q4H PRN IV pain; Start 07/05/16 at 17:30 Heparin Sodium (Porcine) 5000 unit 5,000 unit Q12 SC Last administered on 21:39; Admin Dose 5,000 UNIT; Start 07/05/16 at 21:00 Piperacillin Sod/ Tazobactam Sod 50 ml @ 100 mls/hr Q8 IVPB Last administered on 07/05/16 23:20; Admin Dose 100 MLS/HR; Start 07/05/16 at 22:00 Sodium Chloride (NS) 1,000 ml @ 100 mls/hr Q10H IV Last administered on 20:54; Admin Dose 100 MLS/HR; Start 07/05/16 at 18:30 Nicotine (Nicoderm 21 Mg/ 24hr) 1 patch DAILY TRANSDERM Last administered on 10:34; Admin Dose 1 PATCH; Start 07/06/16 at 19:30 Acetaminophen/ Hydrocodone Bitart ([place] (5/325)) 1 tab Q4H PRN PO moderate pain Last administered on 07/07/16 05:36; Admin Dose 1 TAB; Start 07/06/16 at 21 :30 Sodium Bicarbonate (Sodium Bicarbonate Tab) 1,300 mg BID PO ; Start 07/07/16 at 21:00 Fluconazole (Diflucan) 100 mg DAILY NGT ; Start 07/07/16 at 14:30 Nystatin (Nystatin Susp) 5 ml QID PO ; Start 07/07/16 at 17:00 Neomycin/ Polymyxin/ Bacitracin (Neosporin Topical Oint) 1 applic BID TOP ; Start 07/07/16 at 21:00 ASAF SANCHEZ MD Jul 07, 2016 15:49
--- NOTE | 2016-07-07 17:05 | RADRPT ---
PROCEDURE: Ultrasound proximal right upper extremity for PICC placement CLINICAL INDICATION: PICC placement TECHNIQUE: Sonographic evaluation of the proximal right upper extremity vessels was performed util izing a high-frequency linear transducer. COMPARISON: None available FINDINGS: Limited evaluation of the proximal right upper extremity for vascular access for PICC placement. Gr ossly, no abnormality is seen. IMPRESSION: Unremarkable limited proximal right upper extremity ultrasound for PICC placement. RPTAT: QQ .Marito Beatty MD, MD Date Time Electronically viewed and signed by .Marito Beatty MD, MD on 07/07/2016 17:04 .A/
--- NOTE | 2016-07-07 17:07 | RADRPT ---
PROCEDURE: XR Chest. CLINICAL INDICATION: PICC placement TECHNIQUE: AP chest x-ray. COMPARISON: 07/05/2016 FINDINGS: There is interval placement of a right PICC with the tip at the cavoatrial junction. There is no ev idence of pneumothorax. The lungs are clear. No focal opacification is seen. The cardiomediastina l silhouette is unremarkable. The osseous structures are unremarkable. IMPRESSION: Interval placement of right PICC with the tip at the cavoatrial junction. RPTAT: QQ .Marito Beatty MD, MD Date Time Electronically viewed and signed by .Marito Beatty MD, MD on 07/07/2016 17:07 .A/
[2016-07-07] MEDS: NYSTATIN SUSP 5 ML CUP PO SCH ×2 (17:28→21:14)
[2016-07-07] MEDS: FLUCONAZOLE 100 MG TAB NGT SCH (17:29)
--- NOTE | 2016-07-07 17:50 | PN ---
DATE: 07/07/2016 SUBJECTIVE: No changes overnight. No fevers. The patient is alert, feels good, looks comfortable. Denies pain, discomfort. WBC ____ with neutrophils 79, bands 15, lymphs 2, monos 4, BUN 126, creatinine 4.61. Urinalysis rev ealed trace leukocyte esterase, moderate amount of bacteria, white blood cell count. MICROBIOLOGY: Blood cultures sent since admission negative. Stool for C. diff negative. Pending u rine culture. ANTIMICROBIALS: The patient is on Keflex and Zosyn, status post vancomycin dose given yesterday and status post Levaquin. He is also on IV vancomycin. DIAGNOSTICS: Renal ultrasound revealed normal appearance of the kidneys. Chest x-ray revealed no e vidence for acute disease. CT of the face showed diffuse symmetric soft tissue swelling, moderate m ucosal disease in the paranasal sinuses, no air fluid level is seen to suggest acute sinusitis. No periodontal abscess. Multiple mildly prominent lymph nodes in bilateral neck. PHYSICAL EXAMINATION: GENERAL: Well-nourished, well-developed, middle-aged man who is alert, in no distress. HEENT: Head atraumatic, normocephalic. Sclerae anicteric. The patient has multiple facial lesions and erythema, more on the right face with abrasion. Buccal mucosa pink with white thrush on his to ngue. NECK: Supple. CHEST: Rise symmetrical. Breath sounds clear. ABDOMEN: Distended, soft. Bowel tones present. EXTREMITIES: Without cyanosis. ASSESSMENT: 1. Systemic inflammatory response syndrome with persistent leukocytosis, patient received a dose of Decadron in the emergency department. 2. Facial cellulitis with facial abrasion. 3. Acute renal failure, possibly rhabdomyolysis. 4. Urinary tract infection as per urinalysis. 5. Metabolic acidosis. 6. Homelessness. PLAN: We are going to send urine for culture, discontinue the Keflex, start patient on Diflucan and oral nystatin swish and swallow, add topical triple antibiotic ointment to facial abrasions, swab n elis for MRSA. The patient is clinically stable. Dictated By: HIRAM MONROE ACADEMIC INTERVENTIONIST for CLEMENTINA REECE/JACOB Conf#: [id number] DID#: [id number]
[2016-07-07] MEDS ORDERED: VANCOMYCIN 1 GM in NS 250 ML IVPB ONE (18:00)
[2016-07-07] MEDS: NEOMYC/POLYMYX/BACIT 30 GM OINT TOP SCH (21:12)
[2016-07-07] MEDS: NA BICARBONATE 650 MG TAB PO SCH (22:56)
[2016-07-08] MEDS: SOD CHLORIDE 0.9% 1,000 ML IV SCH (04:19)
[2016-07-08] MEDS: HYDROCODONE/APAP (5/325) TAB PO PRN ×3 (04:20→20:50)
[2016-07-08] MEDS: PIPER-TAZO 2.25 GM (PMX) 50 ML IVPB SCH ×3 (05:18→22:33)
[2016-07-08 06:33] LABS: HEMATOCRIT 36.3 % (42.0-52.0); HEMOGLOBIN 12.3 g/dl (14.0-18.0); MEAN CORPUSCULAR HEMOGLOBIN 28.7 pg (29.0-33.0); MEAN CORPUSCULAR HGB CONC 33.7 g/dl (32.0-37.0); MEAN CORPUSCULAR VOLUME 85.1 fl (82.0-101.0); MEAN PLATELET VOLUME 8.8 fl (7.4-10.4); PLATELET COUNT 252 10^3/UL (140-440); RED BLOOD COUNT 4.27 10^6/ul (4.70-6.10); RED CELL DISTRIBUTION WIDTH 14.8 % (11.5-14.5); UNCORRECTED WBC 27.5 10^3/ul (4.8-10.8); WHITE BLOOD COUNT 27.5 10^3/ul (4.8-10.8)
[2016-07-08 06:35] LABS: ALBUMIN 2.8 g/dl (3.3-4.9); CONDITION 1; LH ANALYZER COMMENTS 1; SUSPECT 1
[2016-07-08 06:36] LABS: POTASSIUM 4.2 mmol/L (3.5-5.1)
[2016-07-08 06:38] LABS: CREATININE 3.34 mg/dl (0.61-1.24)
[2016-07-08 06:39] LABS: ALBUMIN/GLOBULIN RATIO 0.7; CALCIUM 8.3 mg/dl (8.4-10.2); TOTAL PROTEIN 6.8 g/dl (6.1-8.1)
[2016-07-08 06:40] LABS: BACTERIA,URINE OCCASIONAL; URINE RBCS >50 /HPF ([0,])
[2016-07-08 07:46] VITALS: BP 152/89; RESP 20
--- NOTE | 2016-07-08 07:47 | CONS ---
Date/Time of Note Date/Time of Note DATE: 07/08/16 TIME: 07:42 Assessment/Plan Assessment/Plan Additional Assessment/Plan 1. Renal fx is sl better today, await 24 hr urine collection and will ck post void bladder utlz to r/o bladder outlet obstruction, will consider bx pending course and will try to find out who is reg MD is for PMH regarding renal fx, hep serologies ordered 2. ABG ordered to eval low bicarb. 3. Confusion in part related to renal dz, ammonia level to be checked, will get ct brain. 4. Facial cellultits noted, wbc is not improving, ?? ID eval (will discuss with you) Consultation Date/Type/Reason Admit Date/Time Jul 05, 2016 at 15:12 Initial Consult Date Type of Consultation: Nephrology 24 HR Interval Summary Subjective hx not possible: other (lethargic but arrouseable) Detailed Summary Respiratory: No shortness of breath Cardiovascular: No chest pain Gastrointestinal: no complaints Genitourinary: other (? no diff voiding) Neurologic: confusion (recent events) Exam/Review of Systems Vital Signs Vitals Vital Signs Date Time Temp Pulse Resp B/P Pulse Ox O2 Delivery O2 Flow Rate FiO2 07/06/16 20:00 97.7 58 20 136/88 98 Room Air 07/05/16 11:41 2 Intake and Output 07/07/16 07/07/16 07/08/16 15:00 23:00 07:00 Intake Total 770 ml 240 ml Output Total 500 ml 420 ml Balance 270 ml -180 ml Exam Neck: No jvd Respiratory: clear to auscultation Cardiovascular: regular rate and rhythm Gastrointestinal: distended, other (not tender) Neurological: No focal weakness Skin: other (inflam max area noted) Results Result Diagram: 07/08/16 0558 07/08/16 0558 Results 24 hrs Laboratory Tests Test 07/07/16 11:28 07/08/16 04:00 07/08/16 05:58 Creatine Kinase 48 Creatine Kinase Index 8.8 Creatinine Kinase MB (Mass) 4.20 H Troponin I < 0.010 Urine Bacteria OCCASIONAL Urine Microscopic RBC >50 Urine Microscopic WBC 10-25 Alanine Aminotransferase (ALT/SGPT) 43 Albumin 2.8 L Albumin/Globulin Ratio 0.70 Alkaline Phosphatase 91 Anion Gap 20 H Aspartate Amino Transf (AST/SGOT) 65 H Basophils # Pending Basophils % Pending Blood Morphology Comment Blood Urea Nitrogen 128 H Calcium Level 8.3 L Carbon Dioxide Level 18 L Chloride Level 105 Creatinine 3.34 #H Direct Bilirubin 0.00 Eosinophils # Pending Eosinophils % Pending Globulin 4.00 H Glucose Level 134 Hematocrit 36.3 L Hemoglobin 12.3 L Indirect Bilirubin 0.0 Lymphocytes # Pending Lymphocytes % Pending Mean Corpuscular Hemoglobin 28.7 L Mean Corpuscular Hemoglobin Concent 33.7 Mean Corpuscular Volume 85.1 Mean Platelet Volume 8.8 Monocytes # Pending Monocytes % Pending Neutrophils # Pending Neutrophils % Pending Nucleated Red Blood Cells # Pending Nucleated Red Blood Cells % Pending Platelet Count 252 Potassium Level 4.2 Red Blood Count 4.27 L Red Cell Distribution Width 14.8 H Sodium Level 139 Total Bilirubin 0.0 L Total Protein 6.8 White Blood Count 27.5 #H Medications Medications Current Medications Ondansetron HCl (Zofran Inj) 4 mg Q6H PRN IV NAUSEA AND/OR VOMITING; Start 07/05 at 17:30 Acetaminophen (Tylenol Tab) 650 mg Q6H PRN PO PAIN LEVEL 1-3 OR FEVER; Start at 17:30 Morphine Sulfate (morphine) 4 mg Q4H PRN IV pain; Start 07/05/16 at 17:30 Heparin Sodium (Porcine) 5000 unit 5,000 unit Q12 SC Last administered on 21:14; Admin Dose 5,000 UNIT; Start 07/05/16 at 21:00 Piperacillin Sod/ Tazobactam Sod 50 ml @ 100 mls/hr Q8 IVPB Last administered on 07/08/16 05:18; Admin Dose 100 MLS/HR; Start 07/05/16 at 22:00 Sodium Chloride (NS) 1,000 ml @ 100 mls/hr Q10H IV Last administered on 04:19; Admin Dose 100 MLS/HR; Start 07/05/16 at 18:30 Nicotine (Nicoderm 21 Mg/ 24hr) 1 patch DAILY TRANSDERM Last administered on 10:34; Admin Dose 1 PATCH; Start 07/06/16 at 19:30 Acetaminophen/ Hydrocodone Bitart ([place] (5/325)) 1 tab Q4H PRN PO moderate pain Last administered on 07/08/16 04:20; Admin Dose 1 TAB; Start 07/06/16 at 21 :30 Sodium Bicarbonate (Sodium Bicarbonate Tab) 1,300 mg BID PO Last administered on 07/07/16 22:56; Admin Dose 1,300 MG; Start 07/07/16 at 21:00 Fluconazole (Diflucan) 100 mg DAILY NGT Last administered on 07/07/16 17:29; Admin Dose 100 MG; Start 07/07/16 at 14:30 Nystatin (Nystatin Susp) 5 ml QID PO Last administered on 07/07/16 21:14; Admin Dose 5 ML; Start 07/07/16 at 17:00 Neomycin/ Polymyxin/ Bacitracin (Neosporin Topical Oint) 1 applic BID TOP Last administered on 07/07/16 21:12; Admin Dose 1 APPLIC; Start 07/07/16 at 21:00 SWATHI MCCULLOUGH MD Jul 08, 2016 07:47
[2016-07-08 08:43] LABS: AADO2 Arterial 8.8 mmHg (7.0-24.0); Allen Test ACCEPTAB; Arterial Base Excess -7.3 mmol/L (-3.0-3); Arterial COHb 0.3 % (0.0-3.0); Arterial Fraction of Oxyhgb 96.9 % (93.0-99.0); Arterial HCO3 16.5 mmol/L (22.0-26.0); Arterial MetHb 0.2 % (0.0-1.5); Arterial Total Hemglobin 13.4 g/dl (12.0-18.0); MODE ROOM AIR
[2016-07-08] MEDS: FLUCONAZOLE 100 MG TAB NGT SCH (09:16)
[2016-07-08] MEDS: NA BICARBONATE 650 MG TAB PO SCH (09:16)
[2016-07-08] MEDS: NICOTINE (21 MG/24 HR) PATCH TRANSDERM SCH (09:16)
[2016-07-08] MEDS: NYSTATIN SUSP 5 ML CUP PO SCH ×4 (09:16→20:48)
[2016-07-08] MEDS: NEOMYC/POLYMYX/BACIT 30 GM OINT TOP SCH ×2 (09:16→20:49)
[2016-07-08] MEDS: HEPARIN 5,000 UNIT/0.5 ML SYG SC SCH ×2 (09:17→20:49)
[2016-07-08 10:42] LABS: LYMPHOCYTES # 1.1 10^3/ul (0.8-2.9); MONOCYTE # 0.6 10^3/ul (0.3-0.9); NEUTROPHIL # 25.9 10^3/ul (1.6-7.5)
[2016-07-08 11:08] LABS: HEPATITIS B CORE ANTIBODY REACTIVE (NEGATIVE)
--- NOTE | 2016-07-08 12:06 | CONS ---
Date/Time of Note Date/Time of Note DATE: 07/08/16 TIME: 12:04 Consult Date/Type/Reason Admit Date/Time Jul 05, 2016 at 15:12 Initial Consult Date Type of Consultation: ID Subjective no acute events, looks comfortable, no fevers Objective Vital Signs Date Time Temp Pulse Resp B/P Pulse Ox O2 Delivery O2 Flow Rate FiO2 07/08/16 07:46 98.3 52 20 152/89 99 07/06/16 20:00 Room Air 07/05/16 11:41 2 Intake and Output 07/07/16 07/07/16 07/08/16 15:00 23:00 07:00 Intake Total 770 ml 240 ml Output Total 500 ml 420 ml Balance 270 ml -180 ml Results/Medications Result Diagram: 07/08/16 0558 07/08/16 0558 Results 24 hrs Laboratory Tests Test 07/08/16 04:00 07/08/16 05:58 07/08/16 08:00 07/08/16 09:32 Urine Bacteria OCCASIONAL Urine Microscopic RBC >50 Urine Microscopic WBC 10-25 Alanine Aminotransferase (ALT/SGPT) 43 Albumin 2.8 L Albumin/Globulin Ratio 0.70 Alkaline Phosphatase 91 Anion Gap 20 H Aspartate Amino Transf (AST/SGOT) 65 H Basophils # Basophils % Blood Morphology Comment Blood Urea Nitrogen 128 H Calcium Level 8.3 L Carbon Dioxide Level 18 L Chloride Level 105 Creatinine 3.34 #H Direct Bilirubin 0.00 Eosinophils # Eosinophils % Globulin 4.00 H Glucose Level 134 Hematocrit 36.3 L Hemoglobin 12.3 L Indirect Bilirubin 0.0 Lymphocytes # 1.1 Lymphocytes % 4.0 L Mean Corpuscular Hemoglobin 28.7 L Mean Corpuscular Hemoglobin Concent 33.7 Mean Corpuscular Volume 85.1 Mean Platelet Volume 8.8 Monocytes # 0.6 Monocytes % 2.0 Neutrophils # 25.9 H Neutrophils % 94.0 H Nucleated Red Blood Cells # Nucleated Red Blood Cells % Platelet Count 252 Potassium Level 4.2 Red Blood Count 4.27 L Red Cell Distribution Width 14.8 H Sodium Level 139 Total Bilirubin 0.0 L Total Protein 6.8 White Blood Count 27.5 #H Arterial Blood HCO3 16.5 L Arterial Blood Base Excess -7.3 L Arterial Blood Oxygen Saturation 97.4 Jass Test ACCEPTAB Arterial Blood Gas Puncture Site Right Radial Arterial Blood Carboxyhemoglobin 0.3 Arterial Blood Date Drawn 07/08/2016 8:32:30 AM Arterial Blood Methemoglobin 0.2 Arterial Blood pCO2 (Temp correct) 29.0 L Arterial Blood pH (Temp corrected) 7.374 Arterial Blood pO2 (Temp corrected) 106.2 H Blood Gas A-a O2 Differential 8.8 Blood Gas Modality ROOM AIR Blood Gas Notified Time 07/08/2016 8:43:21 AM Blood Gas Notified Whom JLD Blood Gas Specimen Source Blood arterial Blood Gas Temperature 37.0 FiO2 21.0 Oxyhemoglobin Percent 96.9 Total Hemoglobin 13.4 Ammonia 20 Hepatitis B Core Total Antibody REACTIVE H Hepatitis B Surface Antigen NEGATIVE Hepatitis C Antibody REACTIVE H Medications Current Medications Ondansetron HCl (Zofran Inj) 4 mg Q6H PRN IV NAUSEA AND/OR VOMITING; Start 07/05 at 17:30 Acetaminophen (Tylenol Tab) 650 mg Q6H PRN PO PAIN LEVEL 1-3 OR FEVER; Start at 17:30 Morphine Sulfate (morphine) 4 mg Q4H PRN IV pain; Start 07/05/16 at 17:30 Heparin Sodium (Porcine) 5000 unit 5,000 unit Q12 SC Last administered on 09:17; Admin Dose 5,000 UNIT; Start 07/05/16 at 21:00 Piperacillin Sod/ Tazobactam Sod 50 ml @ 100 mls/hr Q8 IVPB Last administered on 07/08/16 05:18; Admin Dose 100 MLS/HR; Start 07/05/16 at 22:00 Sodium Chloride (NS) 1,000 ml @ 100 mls/hr Q10H IV Last administered on 04:19; Admin Dose 100 MLS/HR; Start 07/05/16 at 18:30 Nicotine (Nicoderm 21 Mg/ 24hr) 1 patch DAILY TRANSDERM Last administered on 09:16; Admin Dose 1 PATCH; Start 07/06/16 at 19:30 Acetaminophen/ Hydrocodone Bitart ([place] (5/325)) 1 tab Q4H PRN PO moderate pain Last administered on 07/08/16 09:20; Admin Dose 1 TAB; Start 07/06/16 at 21 :30 Sodium Bicarbonate (Sodium Bicarbonate Tab) 1,300 mg BID PO Last administered on 07/08/16 09:16; Admin Dose 1,300 MG; Start 07/07/16 at 21:00 Fluconazole (Diflucan) 100 mg DAILY NGT Last administered on 07/08/16 09:16; Admin Dose 100 MG; Start 07/07/16 at 14:30 Nystatin (Nystatin Susp) 5 ml QID PO Last administered on 07/08/16 09:16; Admin Dose 5 ML; Start 07/07/16 at 17:00 Neomycin/ Polymyxin/ Bacitracin (Neosporin Topical Oint) 1 applic BID TOP Last administered on 07/08/16 09:16; Admin Dose 1 APPLIC; Start 07/07/16 at 21:00 Miscellaneous Information (*Rx Drug Level Order Reminder*) 1 ONCE ONCE XX ; Start 07/09/16 at 05:00; Stop 07/09/16 at 05:01 Assessment/Plan Chief Complaint/Hosp Course MICROBIOLOGY: Blood cultures sent since admission negative. Stool for C. diff negative. Pending urine culture. ANTIMICROBIALS: The patient is Vanco and Zosyn DIAGNOSTICS: Renal ultrasound revealed normal appearance of the kidneys. Chest x-ray revealed no evidence for acute disease. CT of the face showed diffuse symmetric soft tissue swelling, moderate mucosal disease in the paranasal sinuses, no air fluid level is seen to suggest acute sinusitis. No periodontal abscess. Multiple mildly prominent lymph nodes in bilateral neck. PHYSICAL EXAMINATION: GENERAL: Well-nourished, well-developed, middle-aged man who is alert, in no distress. HEENT: Head atraumatic, normocephalic. Sclerae anicteric. The patient has multiple facial lesions and erythema, more on the right face with abrasion. Buccal mucosa pink with white thrush on his tongue. NECK: Supple. CHEST: Rise symmetrical. Breath sounds clear. ABDOMEN: Distended, soft. Bowel tones present. EXTREMITIES: Without cyanosis. ASSESSMENT: 1. Systemic inflammatory response syndrome with leukocytosis, patient received a dose of Decadron in the emergency department. 2. Facial cellulitis with facial abrasion. 3. Acute renal failure, possibly rhabdomyolysis. 4. Urinary tract infection as per urinalysis. 5. Metabolic acidosis. 6. Homelessness. PLAN: Stable, wbc decreasing, continue abx, Diflucan and oral nystatin swish and topical triple antibiotic ointment to facial abrasions, f/u final workup [facility] staff Problems: HIRAM MONROE NP Jul 08, 2016 12:06
--- NOTE | 2016-07-08 12:12 | RADRPT ---
PROCEDURE: CT Brain without contrast. CLINICAL INDICATION: Headache. TECHNIQUE: A CT of the brain without contrast was performed utilizing axial sections from the skul l base through the vertex. The patient was scanned without intravenous contrast enhancement. [place] l and coronal reformatted images were obtained using the data from the axial images. Total exam DLP is 720.23 mGy-cm. CTDIvol is 43.16 mGy. One or more of the following dose reduction techniques we re used: Automated exposure control, adjustment of the mA and/or kV according to patient size, use o f iterative reconstruction technique. COMPARISON: None available FINDINGS: There is normal landaverde-white matter differentiation. The ventricles and cisterns are normal. There is no intracranial hemorrhage or space-occupying lesion. There is no skull fracture or lytic lesion. IMPRESSION: 1. Normal noncontrast CT scan of the brain. RPTAT: QQ .Gutierrez Archuleta MD, MD Date Time Electronically viewed and signed by .Gutierrez Archuleta MD, on 07/08/2016 12:12 .R/
[2016-07-08 13:17] LABS: SCRET 4.61 mg/dl (0.61-1.24)
[2016-07-08] MEDS: SODIUM BICARBONATE (IV ADD) 100 MEQ in DEXTROSE 5% 1,000 ML IV SCH (16:41)
--- NOTE | 2016-07-08 16:47 | PN ---
DATE: 07/08/2016 SUBJECTIVE DATA: Vital signs remain stable. Pain well controlled. OBJECTIVE DATA: VITAL SIGNS: Temperature 98.3, pulse rate 52, respiratory rate 20, blood pressure 152/89, oxygen saturation 99% on room air. GENERAL: This is an obese male patient lying in bed, somnolent. HEENT: Head normocephalic and atraumatic. Eyes: Anicteric sclerae. Conjunctivae clear. ENT: Nasal septum is midline. Facial erythema with some skin sloughing. Strabismus of the left eye. NECK: Supple. No JVD noticed. RESPIRATORY: Bilaterally clear to auscultation. No adventitious breath sounds heard. No use of accessory muscles of respiration. CARDIAC: Regular rate and rhythm. No murmurs heard. ABDOMEN: Soft, nontender, nondistended. Bowel sounds positive in all 4 quadrants. GENITOURINARY: Deferred. EXTREMITIES: No cyanosis, no clubbing, no edema. Peripheral pulses are palpable. NEUROLOGIC: The patient is awake and alert. Cranial nerves grossly intact. LABORATORY AND DIAGNOSTIC DATA: WBC 27.5, hemoglobin 12.3, hematocrit 36.2, platelet count 252. Sodium 139, potassium 4.0, chloride 105, carbon dioxide 18 , anion gap 20, BUN 120, creatinine 3.34, glucose 134, calcium 8.3. ASSESSMENT AND PLAN: 1. Sepsis secondary to facial cellulitis. Continue antibiotics as per infectious diseases. Continue with ID recommendations. 2. Cellulitis of the face. Continue ID recommendations. 3. Chronic kidney disease. Being followed by Nephrology. Avoid nephrotoxic medications. 4. Hepatitis C. No active issues. Monitor LFTs. 5. Psoriasis. Continue local skin care. 6. Essential hypertension. Continue antihypertensives. BP fairly well controlled. 7. Nicotine use. Cessation advised. 8. Fluid, electrolytes and nutrition. Renal diet. 9. Deep venous thrombosis prophylaxis. Subcutaneous heparin. 10. Gastrointestinal prophylaxis, histamine 2 receptor blockers. 11. Plan. Continue antibiotics as per infectious diseases. Continue to monitor renal function closely. The case discussed with Dr. Mata. ESTUARDO MATA MD, AM/JACOB Conf#: [id number] DID#: [id number] [facility]
[2016-07-08] MEDS: AMLODIPINE 2.5 MG TAB PO SCH (17:45)
[2016-07-08 20:36] VITALS: BP 173/84; RESP 18
[2016-07-09] MEDS: HYDROCODONE/APAP (5/325) TAB PO PRN ×2 (04:41→09:57)
[2016-07-09] MEDS: PIPER-TAZO 2.25 GM (PMX) 50 ML IVPB SCH ×3 (05:20→22:41)
[2016-07-09 06:27] LABS: BASOPHILS % 0.1 % (0.0-2.0); EOSINOPHILS % 0.3 % (0.0-7.0); HEMATOCRIT 34.4 % (42.0-52.0); HEMOGLOBIN 11.7 g/dl (14.0-18.0); LYMPHOCYTES # 2.1 10^3/ul (0.8-2.9); LYMPHOCYTES % 12.8 % (15.0-51.0); MEAN CORPUSCULAR VOLUME 85.3 fl (82.0-101.0); MEAN PLATELET VOLUME 8.6 fl (7.4-10.4); MONOCYTE # 1.5 10^3/ul (0.3-0.9); MONOCYTES % 8.8 % (0.0-11.0); NEUTROPHIL # 13.1 10^3/ul (1.6-7.5); PLATELET COUNT 247 10^3/UL (140-440); RED BLOOD COUNT 4.04 10^6/ul (4.70-6.10); UNCORRECTED WBC 16.8 10^3/ul (4.8-10.8); WHITE BLOOD COUNT 16.8 10^3/ul (4.8-10.8)
[2016-07-09 06:30] LABS: POTASSIUM 4.3 mmol/L (3.5-5.1)
[2016-07-09 06:32] LABS: CREATININE 2.28 mg/dl (0.61-1.24)
[2016-07-09 06:33] LABS: MAGNESIUM 2.7 mg/dl (1.7-2.5); PHOSPHORUS 5.7 mg/dl (2.5-4.9)
[2016-07-09 06:34] LABS: CONDITION 1; LH ANALYZER COMMENTS 1
[2016-07-09] MEDS: SODIUM BICARBONATE (IV ADD) 100 MEQ in DEXTROSE 5% 1,000 ML IV SCH (06:42)
--- NOTE | 2016-07-09 08:10 | CONS ---
Date/Time of Note Date/Time of Note DATE: 07/09/16 TIME: 08:05 Assessment/Plan Assessment/Plan Additional Assessment/Plan 1. Renal fx is improving (24 hr protein and random urine protein is pending) 2. Facial cellulitis is better as is WBC (didn't appreciate he received steroids prior) 3. Elev globulins, SIEP and UIEP ordred. 4. Mental status has improved as well, CT of brain was negative. 5. BP is controlled. 6. He prefers reg diet, changes made. 7. If abd ultz wasnt done will vis liver. Consultation Date/Type/Reason Admit Date/Time Jul 05, 2016 at 15:12 Type of Consultation: ID [id number] HR Interval Summary Constitutional: No other (He is feeling much better) Detailed Summary Respiratory: No cough, No shortness of breath Cardiovascular: No chest pain Gastrointestinal: no complaints Genitourinary: no complaints Skin: other (face pain is less) Exam/Review of Systems Vital Signs Vitals Vital Signs Date Time Temp Pulse Resp B/P Pulse Ox O2 Delivery O2 Flow Rate FiO2 07/08/16 20:36 98.0 61 18 173/84 94 07/06/16 20:00 Room Air 07/05/16 11:41 2 Intake and Output 07/08/16 07/08/16 07/09/16 15:00 23:00 07:00 Intake Total 50 ml 1800 ml 1500 ml Output Total 1500 ml 1400 ml Balance 50 ml 300 ml 100 ml Exam Neck: No jvd Respiratory: clear to auscultation Cardiovascular: regular rate and rhythm Gastrointestinal: soft, No distended Extremities: No edema (and no calf tend) Skin: other (facial erythema is better) Results Result Diagram: 07/09/16 0455 07/09/16 0455 Results 24 hrs Laboratory Tests Test 07/08/16 09:32 07/08/16 10:30 07/08/16 11:40 07/09/16 04:55 Ammonia 20 Hepatitis B Core Total Antibody REACTIVE H Hepatitis B Surface Antigen NEGATIVE Hepatitis C Antibody REACTIVE H Creatinine Clearance 29.3 L Urine Collection Duration Urine Creatinine Timed 24 Urine Random Creatinine 125.28 Urine Total Protein 24 Hour Urine Total Volume (Protein) Urine Total Volume 24 Hours 1550 Stool Occult Blood NEGATIVE Anion Gap 17 H Basophils # 0.0 Basophils % 0.1 Blood Morphology Comment Blood Urea Nitrogen 114 H Calcium Level 8.0 L Carbon Dioxide Level 22 Chloride Level 109 Creatinine 2.28 #H Eosinophils # 0.0 Eosinophils % 0.3 Glucose Level 111 Hematocrit 34.4 L Hemoglobin 11.7 L Lymphocytes # 2.1 Lymphocytes % 12.8 L Magnesium Level 2.7 H Mean Corpuscular Hemoglobin 29.0 Mean Corpuscular Hemoglobin Concent 34.0 Mean Corpuscular Volume 85.3 Mean Platelet Volume 8.6 Monocytes # 1.5 H Monocytes % 8.8 Neutrophils # 13.1 H Neutrophils % 78.0 H Nucleated Red Blood Cells # 0.0 Nucleated Red Blood Cells % 0.0 Phosphorus Level 5.7 H Platelet Count 247 Potassium Level 4.3 Random Vancomycin Level 8.3 Red Blood Count 4.04 L Red Cell Distribution Width 15.0 H Sodium Level 144 White Blood Count 16.8 #H Medications Medications Current Medications Ondansetron HCl (Zofran Inj) 4 mg Q6H PRN IV NAUSEA AND/OR VOMITING; Start 07/05 at 17:30 Acetaminophen (Tylenol Tab) 650 mg Q6H PRN PO PAIN LEVEL 1-3 OR FEVER; Start at 17:30 Morphine Sulfate (morphine) 4 mg Q4H PRN IV pain; Start 07/05/16 at 17:30 Heparin Sodium (Porcine) 5000 unit 5,000 unit Q12 SC Last administered on 20:49; Admin Dose 5,000 UNIT; Start 07/05/16 at 21:00 Piperacillin Sod/ Tazobactam Sod (Zosyn 2.25gm/ 50ml (Pmx)) 50 ml @ 100 mls/hr Q8 IVPB Last administered on 07/09/16 05:20; Admin Dose 100 MLS/HR; Start 07/05 at 22:00 Nicotine (Nicoderm 21 Mg/ 24hr) 1 patch DAILY TRANSDERM Last administered on 09:16; Admin Dose 1 PATCH; Start 07/06/16 at 19:30 Acetaminophen/ Hydrocodone Bitart ([place] (5/325)) 1 tab Q4H PRN PO moderate pain Last administered on 07/09/16 04:41; Admin Dose 1 TAB; Start 07/06/16 at 21:30 Fluconazole (Diflucan) 100 mg DAILY NGT Last administered on 07/08/16 09:16; Admin Dose 100 MG; Start 07/07/16 at 14:30 Nystatin (Nystatin Susp) 5 ml QID PO Last administered on 07/08/16 20:48; Admin Dose 5 ML; Start 07/07/16 at 17:00 Neomycin/ Polymyxin/ Bacitracin 1 applic 1 applic BID TOP Last administered on 07/08/16 20:49; Admin Dose 1 APPLIC; Start 07/07/16 at 21:00 Sodium Bicarbonate/ Dextrose (Na Bicarb/D5W) 1,100 ml @ 125 mls/hr Q8H48M IV Last administered on 07/09/16 06:42; Admin Dose 125 MLS/HR; Start 07/08/16 at 15 :30 Amlodipine Besylate (Norvasc) 2.5 mg BID PO Last administered on 07/08/16 17:45 ; Admin Dose 2.5 MG; Start 07/08/16 at 18:00 SWATHI MCCULLOUGH MD Jul 09, 2016 08:10
[2016-07-09 08:31] VITALS: BP 149/88; RESP 22
[2016-07-09] MEDS: HEPARIN 5,000 UNIT/0.5 ML SYG SC SCH ×2 (09:00→22:27)
[2016-07-09] MEDS: NEOMYC/POLYMYX/BACIT 30 GM OINT TOP SCH ×2 (09:47→22:25)
[2016-07-09] MEDS: NYSTATIN SUSP 5 ML CUP PO SCH ×4 (09:47→22:28)
[2016-07-09] MEDS: AMLODIPINE 2.5 MG TAB PO SCH ×2 (09:48→21:00)
[2016-07-09] MEDS: NICOTINE (21 MG/24 HR) PATCH TRANSDERM SCH (09:48)
[2016-07-09] MEDS: SOD CHLORIDE 0.9% 1,000 ML IV SCH ×2 (09:48→22:32)
[2016-07-09] MEDS: FLUCONAZOLE 100 MG TAB NGT SCH (09:48)
--- NOTE | 2016-07-09 10:51 | PN ---
Date/Time of Note Date/Time of Note DATE: 07/09/16 TIME: 10:50 Assessment/Plan VTE Prophylaxis VTE Prophylaxis Intervention: heparin Lines/Catheters IV [facility] PICC Line Central line still needed: Yes Urinary Cath still in place: No Assessment/Plan Chief Complaint/Hosp Course 1. Sepsis secondary to facial cellulitis. Continue antibiotics as per infectious diseases. Continue with ID recommendations. 2. Cellulitis of the face. Continue ID recommendations. 3. Chronic kidney disease. Being followed by Nephrology. Avoid nephrotoxic medications. 4. Normocytic, normochromic anemia. Most probably anemia of chronic kidney disease. Monitor H&H closely. 5. Psoriasis. Continue local treatment. 6. Essential hypertension. Continue antihypertensives. 7. Nicotine use. Cessation advised. 8. Hepatitis B & C. No active issues. Monitor LFTs. Pending alpha- fetoprotein. 9. Fluid, electrolytes and nutrition. Regular diet. 10. Deep venous thrombosis prophylaxis. Subcutaneous heparin. 11. Gastrointestinal prophylaxis, histamine 2 receptor blockers. 12. Plan. Continue antibiotics as per infectious diseases. Continue to monitor renal function closely. The case was discussed with Dr. Tabor. Problems: Subjective 24 Hr Interval Summary Free Text/Dictation Feeling better. Denies any dysphagia. Exam/Review of Systems Vital Signs Vitals Vital Signs Date Time Temp Pulse Resp B/P Pulse Ox O2 Delivery O2 Flow Rate FiO2 07/09/16 08:31 98.1 48 22 149/88 96 07/06/16 20:00 Room Air 07/05/16 11:41 2 Intake and Output 07/08/16 07/08/16 07/09/16 15:00 23:00 07:00 Intake Total 50 ml 1800 ml 1500 ml Output Total 1500 ml 1400 ml Balance 50 ml 300 ml 100 ml Exam GENERAL: This is an obese male patient lying in bed, somnolent. HEENT: Head normocephalic and atraumatic. Eyes: Anicteric sclerae. Conjunctivae clear. ENT: Nasal septum is midline. Facial erythema with some skin sloughing. Strabismus of the left eye. NECK: Supple. No JVD noticed. RESPIRATORY: Bilaterally clear to auscultation. No adventitious breath sounds heard. No use of accessory muscles of respiration. CARDIAC: Regular rate and rhythm. No murmurs heard. ABDOMEN: Soft, nontender, nondistended. Bowel sounds positive in all 4 quadrants. GENITOURINARY: Deferred. EXTREMITIES: No cyanosis, no clubbing, no edema. Peripheral pulses are palpable. NEUROLOGIC: The patient is awake and alert. Cranial nerves grossly intact. Results Result Diagram: 07/09/16 0455 07/09/16 0455 Results 24 hrs Laboratory Tests Test 07/08/16 11:40 07/09/16 04:55 Stool Occult Blood NEGATIVE Anion Gap 17 H Basophils # 0.0 Basophils % 0.1 Blood Morphology Comment Blood Urea Nitrogen 114 H Calcium Level 8.0 L Carbon Dioxide Level 22 Chloride Level 109 Creatinine 2.28 #H Eosinophils # 0.0 Eosinophils % 0.3 Glucose Level 111 Hematocrit 34.4 L Hemoglobin 11.7 L Lymphocytes # 2.1 Lymphocytes % 12.8 L Magnesium Level 2.7 H Mean Corpuscular Hemoglobin 29.0 Mean Corpuscular Hemoglobin Concent 34.0 Mean Corpuscular Volume 85.3 Mean Platelet Volume 8.6 Monocytes # 1.5 H Monocytes % 8.8 Neutrophils # 13.1 H Neutrophils % 78.0 H Nucleated Red Blood Cells # 0.0 Nucleated Red Blood Cells % 0.0 Phosphorus Level 5.7 H Platelet Count 247 Potassium Level 4.3 Random Vancomycin Level 8.3 Red Blood Count 4.04 L Red Cell Distribution Width 15.0 H Sodium Level 144 White Blood Count 16.8 #H Medications Medications Current Medications Ondansetron HCl (Zofran Inj) 4 mg Q6H PRN IV NAUSEA AND/OR VOMITING; Start 07/05 at 17:30 Acetaminophen (Tylenol Tab) 650 mg Q6H PRN PO PAIN LEVEL 1-3 OR FEVER; Start at 17:30 Morphine Sulfate (morphine) 4 mg Q4H PRN IV pain; Start 07/05/16 at 17:30 Heparin Sodium (Porcine) 5000 unit 5,000 unit Q12 SC Last administered on 20:49; Admin Dose 5,000 UNIT; Start 07/05/16 at 21:00 Piperacillin Sod/ Tazobactam Sod (Zosyn 2.25gm/ 50ml (Pmx)) 50 ml @ 100 mls/hr Q8 IVPB Last administered on 07/09/16 05:20; Admin Dose 100 MLS/HR; Start 07/05 at 22:00 Nicotine (Nicoderm 21 Mg/ 24hr) 1 patch DAILY TRANSDERM Last administered on 09:48; Admin Dose 1 PATCH; Start 07/06/16 at 19:30 Acetaminophen/ Hydrocodone Bitart ([place] (5/325)) 1 tab Q4H PRN PO moderate pain Last administered on 07/09/16 09:57; Admin Dose 1 TAB; Start 07/06/16 at 21:30 Fluconazole (Diflucan) 100 mg DAILY NGT Last administered on 07/09/16 09:48; Admin Dose 100 MG; Start 07/07/16 at 14:30 Nystatin (Nystatin Susp) 5 ml QID PO Last administered on 07/09/16 09:47; Admin Dose 5 ML; Start 07/07/16 at 17:00 Neomycin/ Polymyxin/ Bacitracin (Neosporin Topical Oint) 1 applic BID TOP Last administered on 07/09/16 09:47; Admin Dose 1 APPLIC; Start 07/07/16 at 21:00 Amlodipine Besylate 2.5 mg 2.5 mg BID PO Last administered on 07/09/16 09:48; Admin Dose 2.5 MG; Start 07/08/16 at 18:00 Sodium Chloride 1,000 ml @ 75 mls/hr [id number] IV Last administered on 09:48; Admin Dose 75 MLS/HR; Start 07/09/16 at 08:00 Vancomycin HCl/ Sodium Chloride (Vancocin/NS) 250 ml @ 83.333 mls/ hr Q24H IVPB ; Start 07/09/16 at 11:00 ESTUARDO FLORIAN NP Jul 09, 2016 10:50
[2016-07-09] MEDS: VANCOMYCIN 1.25 GM in SOD CHLORIDE 0.9% 250 ML IVPB SCH (11:00)
--- NOTE | 2016-07-09 11:17 | RADRPT ---
PROCEDURE: US Abdomen and Retroperitoneum. CLINICAL INDICATION: Abdominal pain. TECHNIQUE: Multiple real-time longitudinal and transverse images were acquired of the patient's ab domen and retroperitoneum utilizing a curved array transducer. COMPARISON: No prior studies are available for comparison. FINDINGS: The liver is normal in size and diffusely increased in echogenicity. The liver has a normal smooth surface. There is no focal hepatic lesion. Color Doppler and pulsed Doppler sonography demonstrate n ormal antegrade flow in the portal vein. The gallbladder is normal with no stones or wall thickening. The bile ducts are normal with the common bile duct measuring 3.7 mm in diameter. The spleen is normal in size. There is no focal splenic lesion. The pancreas is partially seen and is unremarkable. There is no free fluid. The right kidney measures 13.1 cm and the left kidney measures 12.8 cm. There is no renal mass. There is no hydronephrosis or calculus. The abdominal aorta is not dilated. The inferior vena cava is unremarkable. IMPRESSION: 1. Fatty metamorphosis of the liver. 2. Otherwise normal ultrasound of the abdomen and retroperitoneum. RPTAT: QQ .Gutierrez Archuleta MD, Date Time Electronically viewed and signed by .Gutierrez Archuleta MD, on 07/09/2016 11:17 .R/
--- NOTE | 2016-07-09 13:44 | CONS ---
Date/Time of Note Date/Time of Note DATE: 07/09/16 TIME: 13:43 Consult Date/Type/Reason Admit Date/Time Jul 05, 2016 at 15:12 Type of Consultation: ID Subjective no acute changes, no fevers, nad Objective Vital Signs Date Time Temp Pulse Resp B/P Pulse Ox O2 Delivery O2 Flow Rate FiO2 07/09/16 08:31 98.1 48 22 149/88 96 07/06/16 20:00 Room Air 07/05/16 11:41 2 Intake and Output 07/08/16 07/08/16 07/09/16 15:00 23:00 07:00 Intake Total 50 ml 1800 ml 1500 ml Output Total 1500 ml 1400 ml Balance 50 ml 300 ml 100 ml Results/Medications Result Diagram: 07/09/16 0455 07/09/16 0455 Results 24 hrs Laboratory Tests Test 07/09/16 04:55 Alpha Fetoprotein 1.10 Anion Gap 17 H Basophils # 0.0 Basophils % 0.1 Blood Morphology Comment Blood Urea Nitrogen 114 H Calcium Level 8.0 L Carbon Dioxide Level 22 Chloride Level 109 Creatinine 2.28 #H Eosinophils # 0.0 Eosinophils % 0.3 Glucose Level 111 Hematocrit 34.4 L Hemoglobin 11.7 L Lymphocytes # 2.1 Lymphocytes % 12.8 L Magnesium Level 2.7 H Mean Corpuscular Hemoglobin 29.0 Mean Corpuscular Hemoglobin Concent 34.0 Mean Corpuscular Volume 85.3 Mean Platelet Volume 8.6 Monocytes # 1.5 H Monocytes % 8.8 Neutrophils # 13.1 H Neutrophils % 78.0 H Nucleated Red Blood Cells # 0.0 Nucleated Red Blood Cells % 0.0 Phosphorus Level 5.7 H Platelet Count 247 Potassium Level 4.3 Random Vancomycin Level 8.3 Red Blood Count 4.04 L Red Cell Distribution Width 15.0 H Sodium Level 144 White Blood Count 16.8 #H Medications Current Medications Ondansetron HCl (Zofran Inj) 4 mg Q6H PRN IV NAUSEA AND/OR VOMITING; Start 07/05 at 17:30 Acetaminophen (Tylenol Tab) 650 mg Q6H PRN PO PAIN LEVEL 1-3 OR FEVER; Start at 17:30 Morphine Sulfate (morphine) 4 mg Q4H PRN IV pain; Start 07/05/16 at 17:30 Heparin Sodium (Porcine) 5000 unit 5,000 unit Q12 SC Last administered on 20:49; Admin Dose 5,000 UNIT; Start 07/05/16 at 21:00 Piperacillin Sod/ Tazobactam Sod (Zosyn 2.25gm/ 50ml (Pmx)) 50 ml @ 100 mls/hr Q8 IVPB Last administered on 07/09/16 05:20; Admin Dose 100 MLS/HR; Start 07/05 at 22:00 Nicotine (Nicoderm 21 Mg/ 24hr) 1 patch DAILY TRANSDERM Last administered on 09:48; Admin Dose 1 PATCH; Start 07/06/16 at 19:30 Acetaminophen/ Hydrocodone Bitart ([place] (5/325)) 1 tab Q4H PRN PO moderate pain Last administered on 07/09/16 09:57; Admin Dose 1 TAB; Start 07/06/16 at 21:30 Fluconazole (Diflucan) 100 mg DAILY NGT Last administered on 07/09/16 09:48; Admin Dose 100 MG; Start 07/07/16 at 14:30 Nystatin (Nystatin Susp) 5 ml QID PO Last administered on 07/09/16 09:47; Admin Dose 5 ML; Start 07/07/16 at 17:00 Neomycin/ Polymyxin/ Bacitracin (Neosporin Topical Oint) 1 applic BID TOP Last administered on 07/09/16 09:47; Admin Dose 1 APPLIC; Start 07/07/16 at 21:00 Amlodipine Besylate 2.5 mg 2.5 mg BID PO Last administered on 07/09/16 09:48; Admin Dose 2.5 MG; Start 07/08/16 at 18:00 Sodium Chloride 1,000 ml @ 75 mls/hr [id number] IV Last administered on 09:48; Admin Dose 75 MLS/HR; Start 07/09/16 at 08:00 Vancomycin HCl/ Sodium Chloride (Vancocin/NS) 250 ml @ 83.333 mls/ hr Q24H IVPB Last administered on 07/09/16 11:00; Admin Dose 83.333 MLS/HR; Start 04/15 at 11:00 Assessment/Plan Chief Complaint/Hosp Course MICROBIOLOGY: Blood cultures sent since admission negative. Stool for C. diff negative. Pending urine culture. ANTIMICROBIALS: The patient is Vanco and Zosyn DIAGNOSTICS: Renal ultrasound revealed normal appearance of the kidneys. Chest x-ray revealed no evidence for acute disease. CT of the face showed diffuse symmetric soft tissue swelling, moderate mucosal disease in the paranasal sinuses, no air fluid level is seen to suggest acute sinusitis. No periodontal abscess. Multiple mildly prominent lymph nodes in bilateral neck. PHYSICAL EXAMINATION: GENERAL: Well-nourished, well-developed, middle-aged man who is alert, in no distress. HEENT: Head atraumatic, normocephalic. Sclerae anicteric. The patient has multiple facial lesions and erythema, more on the right face with abrasion. Buccal mucosa pink with white thrush on his tongue. NECK: Supple. CHEST: Rise symmetrical. Breath sounds clear. ABDOMEN: Distended, soft. Bowel tones present. EXTREMITIES: Without cyanosis. ASSESSMENT: 1. Systemic inflammatory response syndrome with leukocytosis, patient received a dose of Decadron in the emergency department. 2. Facial cellulitis with facial abrasion==> improving. 3. Acute renal failure, possibly rhabdomyolysis. 4. Urinary tract infection as per urinalysis. 5. Metabolic acidosis. 6. Homelessness. PLAN: Remains stable, wbc decreasing, continue abx, Diflucan and oral nystatin swish and topical triple antibiotic ointment to facial abrasions [facility] staff Problems: HIRAM MONROE NP Jul 09, 2016 13:44
[2016-07-09 14:37] LABS: ANA SCREEN NEGATIVE (NEGATIVE)
[2016-07-09 16:50] LABS: MYELOPEROXIDASE ANTIBODY <1.0 AI; PROTEINASE-3 ANTIBODY <1.0 AI
[2016-07-09 19:54] VITALS: BP 147/75; RESP 22
[2016-07-09 20:00] VITALS: BP 147/75; PULSE 68; RESP 20
[2016-07-09] MEDS: morphine 2 MG INJ IV PRN (22:34)
[2016-07-10 05:51] LABS: BASOPHILS % 0.3 % (0.0-2.0); EOSINOPHILS # 0.2 10^3/ul (0.0-0.5); EOSINOPHILS % 1.2 % (0.0-7.0); HEMATOCRIT 36.1 % (42.0-52.0); HEMOGLOBIN 12.1 g/dl (14.0-18.0); LYMPHOCYTES # 2.8 10^3/ul (0.8-2.9); MEAN CORPUSCULAR HEMOGLOBIN 29.1 pg (29.0-33.0); MEAN CORPUSCULAR HGB CONC 33.7 g/dl (32.0-37.0); MEAN CORPUSCULAR VOLUME 86.3 fl (82.0-101.0); MONOCYTE # 1.6 10^3/ul (0.3-0.9); MONOCYTES % 9.6 % (0.0-11.0); NEUTROPHIL # 11.6 10^3/ul (1.6-7.5); NEUTROPHILS % 71.9 % (39.0-77.0); PLATELET COUNT 278 10^3/UL (140-440); RED BLOOD COUNT 4.18 10^6/ul (4.70-6.10); RED CELL DISTRIBUTION WIDTH 15.5 % (11.5-14.5); UNCORRECTED WBC 16.2 10^3/ul (4.8-10.8); WHITE BLOOD COUNT 16.2 10^3/ul (4.8-10.8)
[2016-07-10 05:55] LABS: CONDITION 1; LH ANALYZER COMMENTS 1
[2016-07-10] MEDS: PIPER-TAZO 2.25 GM (PMX) 50 ML IVPB SCH (05:55)
[2016-07-10] MEDS: morphine 2 MG INJ IV PRN ×2 (05:57→21:28)
[2016-07-10 06:05] LABS: POTASSIUM 5.1 mmol/L (3.5-5.1)
[2016-07-10 06:07] LABS: CREATININE 1.61 mg/dl (0.61-1.24)
[2016-07-10 06:08] LABS: CALCIUM 8.1 mg/dl (8.4-10.2); PHOSPHORUS 4.3 mg/dl (2.5-4.9)
[2016-07-10 06:09] LABS: MAGNESIUM 2.7 mg/dl (1.7-2.5)
[2016-07-10 07:32] VITALS: BP 162/92; RESP 20
--- NOTE | 2016-07-10 08:31 | CONS ---
Date/Time of Note Date/Time of Note DATE: 07/10/16 TIME: 08:23 Assessment/Plan Assessment/Plan Additional Assessment/Plan 1. Renal fx continues to improve. 2. Hematuria noted without significant proteinuria (964 mg), will need to be followed as OP, urology eval will be needed (cysto) and if negative renal bx may be needed especially if repeat complement level are low. 3. Mild hypernatremia, IV fluids changed 4. BP sl inc, low dose beta isabella added Consultation Date/Type/Reason Admit Date/Time Jul 05, 2016 at 15:12 Type of Consultation: ID Detailed Summary Respiratory: No cough Cardiovascular: No chest pain Gastrointestinal: no complaints Genitourinary: no complaints Skin: other (face is burning less) Exam/Review of Systems Vital Signs Vitals Vital Signs Date Time Temp Pulse Resp B/P Pulse Ox O2 Delivery O2 Flow Rate FiO2 07/10/16 07:32 98.6 96 20 162/92 98 07/09/16 20:00 Room Air Intake and Output 07/09/16 07/09/16 07/10/16 14:59 22:59 06:59 Intake Total 650 ml 1800 ml 1150 ml Output Total 800 ml 1000 ml Balance 650 ml 1000 ml 150 ml Exam Neck: No jvd Respiratory: clear to auscultation Cardiovascular: regular rate and rhythm Extremities: No edema (and no calf tend bilat) Skin: other (facial erythema continued to imporve) Results Result Diagram: 07/10/16 0450 07/10/16 0450 Results 24 hrs Laboratory Tests Test 07/10/16 04:50 07/10/16 08:03 Anion Gap 13 Basophils # 0.0 Basophils % 0.3 Blood Morphology Comment Blood Urea Nitrogen 88 H Calcium Level 8.1 L Carbon Dioxide Level 25 Chloride Level 114 H Creatinine 1.61 H Eosinophils # 0.2 Eosinophils % 1.2 Glucose Level 77 Hematocrit 36.1 L Hemoglobin 12.1 L Lymphocytes # 2.8 Lymphocytes % 17.0 Magnesium Level 2.7 H Mean Corpuscular Hemoglobin 29.1 Mean Corpuscular Hemoglobin Concent 33.7 Mean Corpuscular Volume 86.3 Mean Platelet Volume 8.0 Monocytes # 1.6 H Monocytes % 9.6 Neutrophils # 11.6 H Neutrophils % 71.9 Nucleated Red Blood Cells # 0.0 Nucleated Red Blood Cells % 0.0 Phosphorus Level 4.3 Platelet Count 278 Potassium Level 5.1 Red Blood Count 4.18 L Red Cell Distribution Width 15.5 H Sodium Level 147 H White Blood Count 16.2 H Lab Scanned Report REFERENCE LAB Medications Medications Current Medications Ondansetron HCl (Zofran Inj) 4 mg Q6H PRN IV NAUSEA AND/OR VOMITING; Start 07/05 at 17:30 Acetaminophen (Tylenol Tab) 650 mg Q6H PRN PO PAIN LEVEL 1-3 OR FEVER; Start at 17:30 Morphine Sulfate (morphine) 4 mg Q4H PRN IV pain Last administered on 05:57; Admin Dose 4 MG; Start 07/05/16 at 17:30 Heparin Sodium (Porcine) 5000 unit 5,000 unit Q12 SC Last administered on 22:27; Admin Dose 5,000 UNIT; Start 07/05/16 at 21:00 Piperacillin Sod/ Tazobactam Sod (Zosyn 2.25gm/ 50ml (Pmx)) 50 ml @ 100 mls/hr Q8 IVPB Last administered on 07/10/16 05:55; Admin Dose 100 MLS/HR; Start 07/05 at 22:00 Nicotine (Nicoderm 21 Mg/ 24hr) 1 patch DAILY TRANSDERM Last administered on 09:48; Admin Dose 1 PATCH; Start 07/06/16 at 19:30 Acetaminophen/ Hydrocodone Bitart ([place] (5/325)) 1 tab Q4H PRN PO moderate pain Last administered on 07/09/16 09:57; Admin Dose 1 TAB; Start 07/06/16 at 21:30 Fluconazole (Diflucan) 100 mg DAILY NGT Last administered on 07/09/16 09:48; Admin Dose 100 MG; Start 07/07/16 at 14:30 Nystatin (Nystatin Susp) 5 ml QID PO Last administered on 07/09/16 22:28; Admin Dose 5 ML; Start 07/07/16 at 17:00 Neomycin/ Polymyxin/ Bacitracin (Neosporin Topical Oint) 1 applic BID TOP Last administered on 07/09/16 22:25; Admin Dose 1 APPLIC; Start 07/07/16 at 21:00 Amlodipine Besylate 2.5 mg 2.5 mg BID PO Last administered on 07/09/16 09:48; Admin Dose 2.5 MG; Start 07/08/16 at 18:00 Sodium Chloride 1,000 ml @ 75 mls/hr [id number] IV Last administered on 22:32; Admin Dose 75 MLS/HR; Start 07/09/16 at 08:00 Vancomycin HCl/ Sodium Chloride (Vancocin/NS) 250 ml @ 83.333 mls/ hr Q24H IVPB Last administered on 07/09/16 11:00; Admin Dose 83.333 MLS/HR; Start 04/15 at 11:00 SWATHI MCCULLOUGH MD Jul 10, 2016 08:31
[2016-07-10] MEDS: NICOTINE (21 MG/24 HR) PATCH TRANSDERM SCH (08:42)
[2016-07-10] MEDS: HEPARIN 5,000 UNIT/0.5 ML SYG SC SCH ×2 (08:42→21:35)
[2016-07-10] MEDS: NEOMYC/POLYMYX/BACIT 30 GM OINT TOP SCH ×2 (08:43→21:30)
[2016-07-10] MEDS: AMLODIPINE 2.5 MG TAB PO SCH (08:43)
[2016-07-10] MEDS: NYSTATIN SUSP 5 ML CUP PO SCH ×4 (08:43→21:00)
[2016-07-10] MEDS: FLUCONAZOLE 100 MG TAB NGT SCH (08:43)
[2016-07-10] MEDS ORDERED: METOPROLOL (XL) 25 MG TAB PO SCH (09:00)
[2016-07-10 09:30] VITALS: BP 184/91
--- NOTE | 2016-07-10 10:05 | PN ---
Date/Time of Note Date/Time of Note DATE: 07/10/16 TIME: 10:05 Assessment/Plan VTE Prophylaxis VTE Prophylaxis Intervention: heparin Lines/Catheters IV [facility] PICC Line Central line still needed: Yes Urinary Cath still in place: No Assessment/Plan Chief Complaint/Hosp Course 1. Sepsis secondary to facial cellulitis. Continue antibiotics as per infectious diseases. Continue with ID recommendations. 2. Cellulitis of the face. Continue ID recommendations. 3. Chronic kidney disease. Being followed by Nephrology. Avoid nephrotoxic medications. 4. Normocytic, normochromic anemia. Most probably anemia of chronic kidney disease. Monitor H&H closely. 5. Psoriasis. Continue local treatment. 6. Essential hypertension. Continue antihypertensives. 7. Nicotine use. Cessation advised. 8. Hepatitis B & C. No active issues. Monitor LFTs. Alpha-fetoprotein within normal limits. 9. Fluid, electrolytes and nutrition. Regular diet. 10. Deep venous thrombosis prophylaxis. Subcutaneous heparin. 11. Gastrointestinal prophylaxis, histamine 2 receptor blockers. 12. Plan. Continue antibiotics as per infectious diseases. Continue to monitor renal function closely. The case was discussed with Dr. Tabor. Problems: Subjective 24 Hr Interval Summary Free Text/Dictation Pain well controlled. Denies any gross hematuria. Exam/Review of Systems Vital Signs Vitals Vital Signs Date Time Temp Pulse Resp B/P Pulse Ox O2 Delivery O2 Flow Rate FiO2 07/10/16 07:32 98.6 96 20 162/92 98 07/09/16 20:00 Room Air Intake and Output 07/09/16 07/09/16 07/10/16 15:00 23:00 07:00 Intake Total 650 ml 1800 ml 1150 ml Output Total 800 ml 1000 ml Balance 650 ml 1000 ml 150 ml Exam GENERAL: This is an obese male patient lying in bed, somnolent. HEENT: Head normocephalic and atraumatic. Eyes: Anicteric sclerae. Conjunctivae clear. ENT: Nasal septum is midline. Facial erythema with some skin sloughing. Strabismus of the left eye. NECK: Supple. No JVD noticed. RESPIRATORY: Bilaterally clear to auscultation. No adventitious breath sounds heard. No use of accessory muscles of respiration. CARDIAC: Regular rate and rhythm. No murmurs heard. ABDOMEN: Soft, nontender, nondistended. Bowel sounds positive in all 4 quadrants. GENITOURINARY: Deferred. EXTREMITIES: No cyanosis, no clubbing, no edema. Peripheral pulses are palpable. NEUROLOGIC: The patient is awake and alert. Cranial nerves grossly intact. Results Result Diagram: 07/10/16 0450 07/10/16 0450 Results 24 hrs Laboratory Tests Test 07/10/16 04:50 07/10/16 08:03 Anion Gap 13 Basophils # 0.0 Basophils % 0.3 Blood Morphology Comment Blood Urea Nitrogen 88 H Calcium Level 8.1 L Carbon Dioxide Level 25 Chloride Level 114 H Creatinine 1.61 H Eosinophils # 0.2 Eosinophils % 1.2 Glucose Level 77 Hematocrit 36.1 L Hemoglobin 12.1 L Lymphocytes # 2.8 Lymphocytes % 17.0 Magnesium Level 2.7 H Mean Corpuscular Hemoglobin 29.1 Mean Corpuscular Hemoglobin Concent 33.7 Mean Corpuscular Volume 86.3 Mean Platelet Volume 8.0 Monocytes # 1.6 H Monocytes % 9.6 Neutrophils # 11.6 H Neutrophils % 71.9 Nucleated Red Blood Cells # 0.0 Nucleated Red Blood Cells % 0.0 Phosphorus Level 4.3 Platelet Count 278 Potassium Level 5.1 Red Blood Count 4.18 L Red Cell Distribution Width 15.5 H Sodium Level 147 H White Blood Count 16.2 H Lab Scanned Report REFERENCE LAB Medications Medications Current Medications Ondansetron HCl (Zofran Inj) 4 mg Q6H PRN IV NAUSEA AND/OR VOMITING; Start 07/05 at 17:30 Acetaminophen (Tylenol Tab) 650 mg Q6H PRN PO PAIN LEVEL 1-3 OR FEVER; Start at 17:30 Morphine Sulfate (morphine) 4 mg Q4H PRN IV pain Last administered on 05:57; Admin Dose 4 MG; Start 07/05/16 at 17:30 Heparin Sodium (Porcine) 5000 unit 5,000 unit Q12 SC Last administered on 08:42; Admin Dose 5,000 UNIT; Start 07/05/16 at 21:00 Piperacillin Sod/ Tazobactam Sod (Zosyn 2.25gm/ 50ml (Pmx)) 50 ml @ 100 mls/hr Q8 IVPB Last administered on 07/10/16 05:55; Admin Dose 100 MLS/HR; Start 07/05 at 22:00 Nicotine (Nicoderm 21 Mg/ 24hr) 1 patch DAILY TRANSDERM Last administered on 08:42; Admin Dose 1 PATCH; Start 07/06/16 at 19:30 Acetaminophen/ Hydrocodone Bitart ([place] (5/325)) 1 tab Q4H PRN PO moderate pain Last administered on 07/09/16 09:57; Admin Dose 1 TAB; Start 07/06/16 at 21:30 Fluconazole (Diflucan) 100 mg DAILY NGT Last administered on 07/10/16 08:43; Admin Dose 100 MG; Start 07/07/16 at 14:30 Nystatin (Nystatin Susp) 5 ml QID PO Last administered on 07/10/16 08:43; Admin Dose 5 ML; Start 07/07/16 at 17:00 Neomycin/ Polymyxin/ Bacitracin (Neosporin Topical Oint) 1 applic BID TOP Last administered on 07/10/16 08:43; Admin Dose 1 APPLIC; Start 07/07/16 at 21:00 Amlodipine Besylate 2.5 mg 2.5 mg BID PO Last administered on 07/10/16 08:43; Admin Dose 2.5 MG; Start 07/08/16 at 18:00 Sodium Chloride 1,000 ml @ 75 mls/hr [id number] IV Last administered on 22:32; Admin Dose 75 MLS/HR; Start 07/09/16 at 08:00 Vancomycin HCl 1.25 gm/Sodium Chloride 250 ml @ 83.333 mls/ hr Q24H IVPB Last administered on 07/09/16 11:00; Admin Dose 83.333 MLS/HR; Start 07/09/16 at 11: 00 Dextrose/Sodium Chloride (D5-1/4ns) 1,000 ml @ 75 mls/hr [id number] IV ; Start 05/16 at 08:30 Metoprolol Succinate (Toprol Xl) 25 mg DAILY PO Last administered on 07/10/16 08:47; Admin Dose 25 MG; Start 07/10/16 at 09:00 ESTUARDO FLORIAN NP Jul 10, 2016 10:05
[2016-07-10] MEDS: SOD CHLORIDE 0.9% 1,000 ML IV SCH ×2 (10:40→21:32)
[2016-07-10] MEDS: VANCOMYCIN 1.25 GM in SOD CHLORIDE 0.9% 250 ML IVPB SCH (11:00)
[2016-07-10 13:30] VITALS: BP_SYST 158; BP_DIAS 82; BP_DIAS 91; PULSE 61
[2016-07-10] MEDS: HYDROCODONE/APAP (5/325) TAB PO PRN (13:56)
--- NOTE | 2016-07-10 14:08 | CONS ---
Date/Time of Note Date/Time of Note DATE: 07/10/16 TIME: 14:06 Consult Date/Type/Reason Admit Date/Time Jul 05, 2016 at 15:12 Type of Consultation: ID Subjective no acute changes, no fevers, looks comfortable Objective Vital Signs Date Time Temp Pulse Resp B/P Pulse Ox O2 Delivery O2 Flow Rate FiO2 07/10/16 07:32 98.6 96 20 162/92 98 07/09/16 20:00 Room Air Intake and Output 07/09/16 07/09/16 07/10/16 15:00 23:00 07:00 Intake Total 650 ml 1800 ml 1150 ml Output Total 800 ml 1000 ml Balance 650 ml 1000 ml 150 ml Results/Medications Result Diagram: 07/10/16 0450 07/10/16 0450 Results 24 hrs Laboratory Tests Test 07/10/16 04:50 07/10/16 08:03 Anion Gap 13 Basophils # 0.0 Basophils % 0.3 Blood Morphology Comment Blood Urea Nitrogen 88 H Calcium Level 8.1 L Carbon Dioxide Level 25 Chloride Level 114 H Creatinine 1.61 H Eosinophils # 0.2 Eosinophils % 1.2 Glucose Level 77 Hematocrit 36.1 L Hemoglobin 12.1 L Lymphocytes # 2.8 Lymphocytes % 17.0 Magnesium Level 2.7 H Mean Corpuscular Hemoglobin 29.1 Mean Corpuscular Hemoglobin Concent 33.7 Mean Corpuscular Volume 86.3 Mean Platelet Volume 8.0 Monocytes # 1.6 H Monocytes % 9.6 Neutrophils # 11.6 H Neutrophils % 71.9 Nucleated Red Blood Cells # 0.0 Nucleated Red Blood Cells % 0.0 Phosphorus Level 4.3 Platelet Count 278 Potassium Level 5.1 Red Blood Count 4.18 L Red Cell Distribution Width 15.5 H Sodium Level 147 H White Blood Count 16.2 H Lab Scanned Report REFERENCE LAB Medications Current Medications Ondansetron HCl (Zofran Inj) 4 mg Q6H PRN IV NAUSEA AND/OR VOMITING; Start 07/05 at 17:30 Acetaminophen (Tylenol Tab) 650 mg Q6H PRN PO PAIN LEVEL 1-3 OR FEVER; Start at 17:30 Morphine Sulfate (morphine) 4 mg Q4H PRN IV pain Last administered on t 05:57; Admin Dose 4 MG; Start 07/05/16 at 17:30 Heparin Sodium (Porcine) 5000 unit 5,000 unit Q12 SC Last administered on 08:42; Admin Dose 5,000 UNIT; Start 07/05/16 at 21:00 Piperacillin Sod/ Tazobactam Sod (Zosyn 2.25gm/ 50ml (Pmx)) 50 ml @ 100 mls/hr Q8 IVPB Last administered on 07/10/16 05:55; Admin Dose 100 MLS/HR; Start 07/05 at 22:00 Nicotine (Nicoderm 21 Mg/ 24hr) 1 patch DAILY TRANSDERM Last administered on 08:42; Admin Dose 1 PATCH; Start 07/06/16 at 19:30 Acetaminophen/ Hydrocodone Bitart ([place] (5/325)) 1 tab Q4H PRN PO moderate pain Last administered on 07/10/16 13:56; Admin Dose 1 TAB; Start 07/06/16 at 21:30 Fluconazole (Diflucan) 100 mg DAILY NGT Last administered on 07/10/16 08:43; Admin Dose 100 MG; Start 07/07/16 at 14:30 Nystatin (Nystatin Susp) 5 ml QID PO Last administered on 07/10/16 13:57; Admin Dose 5 ML; Start 07/07/16 at 17:00 Neomycin/ Polymyxin/ Bacitracin 1 applic 1 applic BID TOP Last administered on 07/10/16 08:43; Admin Dose 1 APPLIC; Start 07/07/16 at 21:00 Sodium Chloride 1,000 ml @ 75 mls/hr [id number] IV Last administered on 22:32; Admin Dose 75 MLS/HR; Start 07/09/16 at 08:00 Vancomycin HCl 1.25 gm/Sodium Chloride 250 ml @ 83.333 mls/ hr Q24H IVPB Last administered on 07/10/16 11:00; Admin Dose 83.333 MLS/HR; Start 07/09/16 at 11: 00 Dextrose/Sodium Chloride (D5-1/4ns) 1,000 ml @ 75 mls/hr [id number] IV ; Start 05/16 at 08:30 Clonidine (Catapres) 0.1 mg BID PO Last administered on 07/10/16 11:01; Admin Dose 0.1 MG; Start 07/10/16 at 11:00 Assessment/Plan Chief Complaint/Hosp Course MICROBIOLOGY: Blood cultures sent since admission negative. Stool for C. diff negative, urine culture negative ANTIMICROBIALS: The patient is Vanco and Zosyn DIAGNOSTICS: Renal ultrasound revealed normal appearance of the kidneys. Chest x-ray revealed no evidence for acute disease. CT of the face showed diffuse symmetric soft tissue swelling, moderate mucosal disease in the paranasal sinuses, no air fluid level is seen to suggest acute sinusitis. No periodontal abscess. Multiple mildly prominent lymph nodes in bilateral neck. PHYSICAL EXAMINATION: GENERAL: Well-nourished, well-developed, middle-aged man who is alert, in no distress. HEENT: Head atraumatic, normocephalic. Sclerae anicteric. The patient has multiple facial lesions and erythema, more on the right face with abrasion. Buccal mucosa pink with white thrush on his tongue. NECK: Supple. CHEST: Rise symmetrical. Breath sounds clear. ABDOMEN: Distended, soft. Bowel tones present. EXTREMITIES: Without cyanosis. ASSESSMENT: 1. Systemic inflammatory response syndrome with leukocytosis, patient received a dose of Decadron in the emergency department. 2. Facial cellulitis with facial abrasion==> improving. 3. Acute renal failure, possibly rhabdomyolysis. 4. Urinary tract infection as per urinalysis. 5. Metabolic acidosis. 6. Homelessness. PLAN: Remains stable, will change Zosyn to Levaquin, continue Vanco, Diflucan and oral nystatin swish and topical triple antibiotic ointment to facial abrasions, nephrology rec-s [facility] staff Problems: HIRAM MONROE NP Jul 10, 2016 14:07
[2016-07-10] MEDS ORDERED: LEVOFLOXACIN 500 MG TAB PO ONE (14:30)
[2016-07-10] MEDS: DEXTROSE 5%-0.225% NACL 1,000 ML IV SCH (16:03)
[2016-07-10 20:00] VITALS: BP 183/86; RESP 19
[2016-07-10 20:30] VITALS: BP 183/86; RESP 19
[2016-07-10 23:00] VITALS: BP 142/70
[2016-07-11] MEDS: morphine 2 MG INJ IV PRN ×4 (02:31→20:36)
[2016-07-11] MEDS: LEVOFLOXACIN 500 MG TAB PO SCH (05:22)
[2016-07-11] MEDS: DEXTROSE 5%-0.225% NACL 1,000 ML IV SCH ×2 (05:23→12:47)
[2016-07-11] MEDS: HYDROCODONE/APAP (5/325) TAB PO PRN ×3 (05:34→21:46)
[2016-07-11 07:26] LABS: BASOPHILS % 0.3 % (0.0-2.0); EOSINOPHILS # 0.4 10^3/ul (0.0-0.5); EOSINOPHILS % 2.2 % (0.0-7.0); HEMATOCRIT 34.4 % (42.0-52.0); HEMOGLOBIN 11.6 g/dl (14.0-18.0); LYMPHOCYTES % 12.4 % (15.0-51.0); MEAN CORPUSCULAR HGB CONC 33.9 g/dl (32.0-37.0); MEAN CORPUSCULAR VOLUME 85.8 fl (82.0-101.0); MEAN PLATELET VOLUME 7.9 fl (7.4-10.4); MONOCYTE # 1.7 10^3/ul (0.3-0.9); MONOCYTES % 10.6 % (0.0-11.0); NEUTROPHIL # 12.1 10^3/ul (1.6-7.5); NEUTROPHILS % 74.5 % (39.0-77.0); PLATELET COUNT 278 10^3/UL (140-440); RED BLOOD COUNT 4.01 10^6/ul (4.70-6.10); RED CELL DISTRIBUTION WIDTH 15.6 % (11.5-14.5); UNCORRECTED WBC 16.2 10^3/ul (4.8-10.8); WHITE BLOOD COUNT 16.2 10^3/ul (4.8-10.8)
[2016-07-11 07:35] LABS: CONDITION 1; LH ANALYZER COMMENTS 1
[2016-07-11 07:51] LABS: POTASSIUM 5.2 mmol/L (3.5-5.1)
[2016-07-11 07:54] LABS: CREATININE 1.35 mg/dl (0.61-1.24)
[2016-07-11 07:55] LABS: CALCIUM 8.5 mg/dl (8.4-10.2)
--- NOTE | 2016-07-11 07:55 | CONS ---
Date/Time of Note Date/Time of Note DATE: 07/11/16 TIME: 07:52 Assessment/Plan Assessment/Plan Additional Assessment/Plan 1. HBP, rev with pt he only wants to take clonidine, dose increased. 2. Anticipate renal fx will be better today, labs pending. 4. Facial cellulitis slowly resolving, and local care to wounds needed ? 4. Low complement may related to active Hep C. Consultation Date/Type/Reason Admit Date/Time Jul 05, 2016 at 15:12 Type of Consultation: ID Detailed Summary Respiratory: No shortness of breath Cardiovascular: No chest pain Gastrointestinal: no complaints Genitourinary: no complaints Skin: other (lax facial pain persists) Neurologic: No headache Exam/Review of Systems Vital Signs Vitals Vital Signs Date Time Temp Pulse Resp B/P Pulse Ox O2 Delivery O2 Flow Rate FiO2 07/10/16 23:00 142/70 07/10/16 20:30 98.3 71 19 96 07/10/16 20:00 Room Air Intake and Output 07/10/16 07/10/16 07/11/16 15:00 23:00 07:00 Intake Total 2035 ml 2125 ml Output Total 1300 ml 1900 ml Balance 735 ml 225 ml Exam Neck: No jvd Respiratory: clear to auscultation Cardiovascular: regular rate and rhythm Gastrointestinal: soft Extremities: No edema (and no calf tend) Skin: other (no change in erythema ) Results Result Diagram: 07/11/16 0530 07/10/16 0450 Results 24 hrs Laboratory Tests Test 07/10/16 08:03 07/11/16 05:30 Lab Scanned Report REFERENCE LAB Basophils # 0.0 Basophils % 0.3 Blood Morphology Comment Eosinophils # 0.4 Eosinophils % 2.2 Hematocrit 34.4 L Hemoglobin 11.6 L Lymphocytes # 2.0 Lymphocytes % 12.4 L Mean Corpuscular Hemoglobin 29.0 Mean Corpuscular Hemoglobin Concent 33.9 Mean Corpuscular Volume 85.8 Mean Platelet Volume 7.9 Monocytes # 1.7 H Monocytes % 10.6 Neutrophils # 12.1 H Neutrophils % 74.5 Nucleated Red Blood Cells # 0.0 Nucleated Red Blood Cells % 0.0 Platelet Count 278 Red Blood Count 4.01 L Red Cell Distribution Width 15.6 H White Blood Count 16.2 H Medications Medications Current Medications Ondansetron HCl (Zofran Inj) 4 mg Q6H PRN IV NAUSEA AND/OR VOMITING; Start 07/05 at 17:30 Acetaminophen (Tylenol Tab) 650 mg Q6H PRN PO PAIN LEVEL 1-3 OR FEVER; Start at 17:30 Morphine Sulfate (morphine) 4 mg Q4H PRN IV pain Last administered on 02:31; Admin Dose 4 MG; Start 07/05/16 at 17:30 Heparin Sodium (Porcine) (Heparin (5000 Units/0.5 ml)) 5,000 unit Q12 SC Last administered on 07/10/16 21:35; Admin Dose 5,000 UNIT; Start 07/05/16 at 21:00 Nicotine (Nicoderm 21 Mg/ 24hr) 1 patch DAILY TRANSDERM Last administered on 08:42; Admin Dose 1 PATCH; Start 07/06/16 at 19:30 Acetaminophen/ Hydrocodone Bitart ([place] (5/325)) 1 tab Q4H PRN PO moderate pain Last administered on 07/11/16 05:34; Admin Dose 1 TAB; Start 07/06/16 at 21:30 Fluconazole (Diflucan) 100 mg DAILY NGT Last administered on 07/10/16 08:43; Admin Dose 100 MG; Start 07/07/16 at 14:30 Nystatin (Nystatin Susp) 5 ml QID PO Last administered on 07/10/16 13:57; Admin Dose 5 ML; Start 07/07/16 at 17:00 Neomycin/ Polymyxin/ Bacitracin 1 applic 1 applic BID TOP Last administered on 07/10/16 21:30; Admin Dose 1 APPLIC; Start 07/07/16 at 21:00 Sodium Chloride 1,000 ml @ 75 mls/hr [id number] IV Last administered on 22:32; Admin Dose 75 MLS/HR; Start 07/09/16 at 08:00 Vancomycin HCl 1.25 gm/Sodium Chloride 250 ml @ 83.333 mls/ hr Q24H IVPB Last administered on 07/10/16 11:00; Admin Dose 83.333 MLS/HR; Start 07/09/16 at 11: 00 Dextrose/Sodium Chloride (D5-1/4ns) 1,000 ml @ 75 mls/hr [id number] IV Last administered on 07/11/16 05:23; Admin Dose 75 MLS/HR; Start 07/10/16 at 08:30 Clonidine (Catapres) 0.1 mg BID PO Last administered on 07/10/16 21:29; Admin Dose 0.1 MG; Start 07/10/16 at 11:00 Levofloxacin (Levaquin) 500 mg DAILY@06 PO Last administered on 07/11/16 05:22 ; Admin Dose 500 MG; Start 07/11/16 at 06:00 SWATHI MCCULLOUGH MD Jul 11, 2016 07:55
[2016-07-11 08:18] VITALS: BP 179/92; RESP 19
[2016-07-11] MEDS: NYSTATIN SUSP 5 ML CUP PO SCH ×4 (08:47→20:42)
[2016-07-11] MEDS: NEOMYC/POLYMYX/BACIT 30 GM OINT TOP SCH ×2 (08:47→20:22)
[2016-07-11] MEDS: FLUCONAZOLE 100 MG TAB NGT SCH (08:47)
[2016-07-11] MEDS: NICOTINE (21 MG/24 HR) PATCH TRANSDERM SCH (08:48)
[2016-07-11] MEDS: HEPARIN 5,000 UNIT/0.5 ML SYG SC SCH ×2 (08:48→20:22)
[2016-07-11 08:55] LABS: COMPLEMENT C4 22 mg/dl (14-44)
[2016-07-11 08:56] LABS: COMPLEMENT C3 < 40 mg/dl (88-165)
--- NOTE | 2016-07-11 10:11 | PN ---
Date/Time of Note Date/Time of Note DATE: 07/11/16 TIME: 10:09 Assessment/Plan VTE Prophylaxis VTE Prophylaxis Intervention: heparin Lines/Catheters IV C[facility] Type (from [facility]): PICC Line Central line still needed: Yes Urinary Cath still in place: No Assessment/Plan Chief Complaint/Hosp Course 1. Sepsis secondary to facial cellulitis. Continue antibiotics as per infectious diseases. Continue with ID recommendations. 2. Cellulitis of the face. Continue ID recommendations. 3. Chronic kidney disease. Being followed by Nephrology. Avoid nephrotoxic medications. 4. Normocytic, normochromic anemia. Most probably anemia of chronic kidney disease. Monitor H&H closely. 5. Psoriasis. Continue local treatment. 6. Essential hypertension. Continue antihypertensives. 7. Nicotine use. Cessation advised. 8. Hepatitis B & C. No active issues. Monitor LFTs. Alpha-fetoprotein within normal limits. 9. Hyperkalemia. Will give a single dose of potassium exchange resin. 10. Fluid, electrolytes and nutrition. Regular diet. 11. Deep venous thrombosis prophylaxis. Subcutaneous heparin. 12. Gastrointestinal prophylaxis, histamine 2 receptor blockers. 13. Plan. Give a single dose of Kayexalate. Continue antibiotics as per infectious diseases. Continue to monitor renal function closely. The case was discussed with Dr. Tabor. Problems: Subjective 24 Hr Interval Summary Free Text/Dictation Denies any pain. Exam/Review of Systems Vital Signs Vitals Vital Signs Date Time Temp Pulse Resp B/P Pulse Ox O2 Delivery O2 Flow Rate FiO2 07/11/16 08:18 98.5 73 19 179/92 98 07/10/16 20:00 Room Air Intake and Output 07/10/16 07/10/16 07/11/16 15:00 23:00 07:00 Intake Total 2035 ml 2125 ml Output Total 1300 ml 1900 ml Balance 735 ml 225 ml Exam GENERAL: This is an obese male patient lying in bed, somnolent. HEENT: Head normocephalic and atraumatic. Eyes: Anicteric sclerae. Conjunctivae clear. ENT: Nasal septum is midline. Facial erythema with some skin sloughing. Strabismus of the left eye. NECK: Supple. No JVD noticed. RESPIRATORY: Bilaterally clear to auscultation. No adventitious breath sounds heard. No use of accessory muscles of respiration. CARDIAC: Regular rate and rhythm. No murmurs heard. ABDOMEN: Soft, nontender, nondistended. Bowel sounds positive in all 4 quadrants. GENITOURINARY: Deferred. EXTREMITIES: No cyanosis, no clubbing, no edema. Peripheral pulses are palpable. NEUROLOGIC: The patient is awake and alert. Cranial nerves grossly intact. Results Result Diagram: 07/11/16 0530 07/11/16 0530 Results 24 hrs Laboratory Tests Test 07/11/16 05:30 Anion Gap 12 Basophils # 0.0 Basophils % 0.3 Blood Morphology Comment Blood Urea Nitrogen 64 H Calcium Level 8.5 Carbon Dioxide Level 27 Chloride Level 112 H Complement C3 < 40 L Complement C4 22 Creatinine 1.35 H Eosinophils # 0.4 Eosinophils % 2.2 Glucose Level 76 Hematocrit 34.4 L Hemoglobin 11.6 L Lymphocytes # 2.0 Lymphocytes % 12.4 L Mean Corpuscular Hemoglobin 29.0 Mean Corpuscular Hemoglobin Concent 33.9 Mean Corpuscular Volume 85.8 Mean Platelet Volume 7.9 Monocytes # 1.7 H Monocytes % 10.6 Neutrophils # 12.1 H Neutrophils % 74.5 Nucleated Red Blood Cells # 0.0 Nucleated Red Blood Cells % 0.0 Platelet Count 278 Potassium Level 5.2 H Red Blood Count 4.01 L Red Cell Distribution Width 15.6 H Sodium Level 146 H White Blood Count 16.2 H Medications Medications Current Medications Ondansetron HCl (Zofran Inj) 4 mg Q6H PRN IV NAUSEA AND/OR VOMITING; Start 07/05 at 17:30 Acetaminophen (Tylenol Tab) 650 mg Q6H PRN PO PAIN LEVEL 1-3 OR FEVER; Start at 17:30 Morphine Sulfate (morphine) 4 mg Q4H PRN IV pain Last administered on 08:57; Admin Dose 4 MG; Start 07/05/16 at 17:30 Heparin Sodium (Porcine) (Heparin (5000 Units/0.5 ml)) 5,000 unit Q12 SC Last administered on 07/11/16 08:48; Admin Dose 5,000 UNIT; Start 07/05/16 at 21:00 Nicotine (Nicoderm 21 Mg/ 24hr) 1 patch DAILY TRANSDERM Last administered on 08:48; Admin Dose 1 PATCH; Start 07/06/16 at 19:30 Acetaminophen/ Hydrocodone Bitart ([place] (5/325)) 1 tab Q4H PRN PO moderate pain Last administered on 07/11/16 05:34; Admin Dose 1 TAB; Start 07/06/16 at 21:30 Fluconazole (Diflucan) 100 mg DAILY NGT Last administered on 07/11/16 08:47; Admin Dose 100 MG; Start 07/07/16 at 14:30 Nystatin (Nystatin Susp) 5 ml QID PO Last administered on 07/11/16 08:47; Admin Dose 5 ML; Start 07/07/16 at 17:00 Neomycin/ Polymyxin/ Bacitracin 1 applic 1 applic BID TOP Last administered on 07/11/16 08:47; Admin Dose 1 APPLIC; Start 07/07/16 at 21:00 Sodium Chloride 1,000 ml @ 75 mls/hr [id number] IV Last administered on 22:32; Admin Dose 75 MLS/HR; Start 07/09/16 at 08:00 Vancomycin HCl 1.25 gm/Sodium Chloride 250 ml @ 83.333 mls/ hr Q24H IVPB Last administered on 07/10/16 11:00; Admin Dose 83.333 MLS/HR; Start 07/09/16 at 11: 00 Dextrose/Sodium Chloride (D5-1/4ns) 1,000 ml @ 50 mls/hr Q20H IV Last administered on 07/11/16 05:23; Admin Dose 75 MLS/HR; Start 07/10/16 at 08:30 Levofloxacin (Levaquin) 500 mg DAILY@06 PO Last administered on 07/11/16 05:22 ; Admin Dose 500 MG; Start 07/11/16 at 06:00 Clonidine (Catapres) 0.1 mg TID PO Last administered on 07/11/16 08:47; Admin Dose 0.1 MG; Start 07/11/16 at 09:00 ESTUARDO FLORIAN NP Jul 11, 2016 10:11
[2016-07-11] MEDS ORDERED: NA POLYST SULFON 15 GM/60 ML BTL PO ONE (10:30)
[2016-07-11] MEDS: VANCOMYCIN 1.25 GM in SOD CHLORIDE 0.9% 250 ML IVPB SCH (11:19)
[2016-07-11] MEDS: SOD CHLORIDE 0.9% 1,000 ML IV SCH (13:20)
[2016-07-11 13:30] VITALS: BP 165/90; PULSE 68
--- NOTE | 2016-07-11 15:44 | CONS ---
Date/Time of Note Date/Time of Note DATE: 07/11/16 TIME: 15:40 Consult Date/Type/Reason Admit Date/Time Jul 05, 2016 at 15:12 Type of Consultation: ID Subjective no events, looks comfortable, no fevers Objective Vital Signs Date Time Temp Pulse Resp B/P Pulse Ox O2 Delivery O2 Flow Rate FiO2 07/11/16 13:30 68 165/90 07/11/16 08:18 98.5 19 98 07/10/16 20:00 Room Air Intake and Output 07/10/16 07/10/16 07/11/16 15:00 23:00 07:00 Intake Total 2035 ml 2125 ml Output Total 1300 ml 1900 ml Balance 735 ml 225 ml Results/Medications Result Diagram: 07/11/1630 07/11/16 0530 Results 24 hrs Laboratory Tests Test 07/11/16 05:30 07/11/16 12:03 Anion Gap 12 Basophils # 0.0 Basophils % 0.3 Blood Morphology Comment Blood Urea Nitrogen 64 H Calcium Level 8.5 Carbon Dioxide Level 27 Chloride Level 112 H Complement C3 < 40 L Complement C4 22 Creatinine 1.35 H Eosinophils # 0.4 Eosinophils % 2.2 Glucose Level 76 Hematocrit 34.4 L Hemoglobin 11.6 L Lymphocytes # 2.0 Lymphocytes % 12.4 L Mean Corpuscular Hemoglobin 29.0 Mean Corpuscular Hemoglobin Concent 33.9 Mean Corpuscular Volume 85.8 Mean Platelet Volume 7.9 Monocytes # 1.7 H Monocytes % 10.6 Neutrophils # 12.1 H Neutrophils % 74.5 Nucleated Red Blood Cells # 0.0 Nucleated Red Blood Cells % 0.0 Platelet Count 278 Potassium Level 5.2 H Red Blood Count 4.01 L Red Cell Distribution Width 15.6 H Sodium Level 146 H White Blood Count 16.2 H Lab Scanned Report REFERENCE LAB Medications Current Medications Ondansetron HCl (Zofran Inj) 4 mg Q6H PRN IV NAUSEA AND/OR VOMITING; Start 07/05 at 17:30 Acetaminophen (Tylenol Tab) 650 mg Q6H PRN PO PAIN LEVEL 1-3 OR FEVER; Start at 17:30 Morphine Sulfate (morphine) 4 mg Q4H PRN IV pain Last administered on t 08:57; Admin Dose 4 MG; Start 07/05/16 at 17:30 Heparin Sodium (Porcine) (Heparin (5000 Units/0.5 ml)) 5,000 unit Q12 SC Last administered on 07/11/16 08:48; Admin Dose 5,000 UNIT; Start 07/05/16 at 21:00 Nicotine (Nicoderm 21 Mg/ 24hr) 1 patch DAILY TRANSDERM Last administered on 08:48; Admin Dose 1 PATCH; Start 07/06/16 at 19:30 Acetaminophen/ Hydrocodone Bitart ([place] (5/325)) 1 tab Q4H PRN PO moderate pain Last administered on 07/11/16 13:27; Admin Dose 1 TAB; Start 07/06/16 at 21:30 Fluconazole (Diflucan) 100 mg DAILY NGT Last administered on 07/11/16 08:47; Admin Dose 100 MG; Start 07/07/16 at 14:30 Nystatin (Nystatin Susp) 5 ml QID PO Last administered on 07/11/16 08:47; Admin Dose 5 ML; Start 07/07/16 at 17:00 Neomycin/ Polymyxin/ Bacitracin 1 applic 1 applic BID TOP Last administered on 07/11/16 08:47; Admin Dose 1 APPLIC; Start 07/07/16 at 21:00 Sodium Chloride 1,000 ml @ 75 mls/hr [id number] IV Last administered on 22:32; Admin Dose 75 MLS/HR; Start 07/09/16 at 08:00 Dextrose/Sodium Chloride (D5-1/4ns) 1,000 ml @ 50 mls/hr Q20H IV Last administered on 07/11/16 05:23; Admin Dose 75 MLS/HR; Start 07/10/16 at 08:30 Levofloxacin (Levaquin) 500 mg DAILY@06 PO Last administered on 07/11/16 05:22 ; Admin Dose 500 MG; Start 07/11/16 at 06:00 Clonidine (Catapres) 0.1 mg TID PO Last administered on 07/11/16 13:27; Admin Dose 0.1 MG; Start 07/11/16 at 09:00 Miscellaneous Information 1 ONCE ONCE XX ; Start 07/12/16 at 10:00; Stop at 10:01 Vancomycin HCl (Vancocin) 250 ml @ 125 mls/hr Q12H IVPB ; Start 07/11/16 at 23: 00 Assessment/Plan Chief Complaint/Hosp Course MICROBIOLOGY: All cx's negative ANTIMICROBIALS: Levaquin, Vanco, Diflucan DIAGNOSTICS: Renal ultrasound revealed normal appearance of the kidneys. Chest x-ray revealed no evidence for acute disease. CT of the face showed diffuse symmetric soft tissue swelling, moderate mucosal disease in the paranasal sinuses, no air fluid level is seen to suggest acute sinusitis. No periodontal abscess. Multiple mildly prominent lymph nodes in bilateral neck. PHYSICAL EXAMINATION: GENERAL: Well-nourished, well-developed, middle-aged man who is alert, in no distress. HEENT: Head atraumatic, normocephalic. Sclerae anicteric. The patient has multiple facial lesions and erythema, more on the right face with abrasion. Buccal mucosa pink with white thrush on his tongue. NECK: Supple. CHEST: Rise symmetrical. Breath sounds clear. ABDOMEN: Distended, soft. Bowel tones present. EXTREMITIES: Without cyanosis. ASSESSMENT: 1. Systemic inflammatory response syndrome with leukocytosis, patient received a dose of Decadron in the emergency department. 2. Facial cellulitis with facial abrasion==> improving. 3. Acute renal failure, possibly rhabdomyolysis. 4. Urinary tract infection as per urinalysis. 5. Metabolic acidosis. 6. Homelessness. 7. Oral thrush PLAN: Remains unchanged, continue abx, nephrology rec-s [facility] staff Problems: HIRAM MONROE NP Jul 11, 2016 15:44
[2016-07-11 20:00] VITALS: BP 189/79; RESP 19
[2016-07-11] MEDS: hydrALAzine 20 MG INJ IV PRN (22:29)
[2016-07-11] MEDS: VANCOMYCIN 1 GM in NS 250 ML IVPB SCH (22:29)
[2016-07-12] MEDS: morphine 2 MG INJ IV PRN ×6 (00:38→22:16)
[2016-07-12] MEDS ORDERED: ENALAPRILAT 1.25 MG INJ IV ONE (02:00)
[2016-07-12] MEDS: DEXTROSE 5%-0.225% NACL 1,000 ML IV SCH (02:14)
[2016-07-12] MEDS: HYDROCODONE/APAP (5/325) TAB PO PRN ×3 (02:19→19:40)
[2016-07-12] MEDS: LEVOFLOXACIN 500 MG TAB PO SCH (05:37)
[2016-07-12 06:18] LABS: BASOPHILS % 0.1 % (0.0-2.0); EOSINOPHILS # 0.5 10^3/ul (0.0-0.5); EOSINOPHILS % 2.7 % (0.0-7.0); HEMATOCRIT 34.3 % (42.0-52.0); HEMOGLOBIN 11.6 g/dl (14.0-18.0); LYMPHOCYTES # 1.6 10^3/ul (0.8-2.9); LYMPHOCYTES % 9.7 % (15.0-51.0); MEAN CORPUSCULAR HGB CONC 33.8 g/dl (32.0-37.0); MEAN CORPUSCULAR VOLUME 85.8 fl (82.0-101.0); MEAN PLATELET VOLUME 7.6 fl (7.4-10.4); MONOCYTE # 1.7 10^3/ul (0.3-0.9); MONOCYTES % 9.9 % (0.0-11.0); NEUTROPHIL # 13.1 10^3/ul (1.6-7.5); NEUTROPHILS % 77.6 % (39.0-77.0); PLATELET COUNT 266 10^3/UL (140-440); RED CELL DISTRIBUTION WIDTH 15.8 % (11.5-14.5); UNCORRECTED WBC 16.9 10^3/ul (4.8-10.8); WHITE BLOOD COUNT 16.9 10^3/ul (4.8-10.8)
[2016-07-12 06:29] LABS: CONDITION 1; LH ANALYZER COMMENTS 1
[2016-07-12 07:15] LABS: POTASSIUM 5.5 mmol/L (3.5-5.1)
[2016-07-12 07:18] LABS: CREATININE 1.35 mg/dl (0.61-1.24)
[2016-07-12 07:19] LABS: CALCIUM 8.6 mg/dl (8.4-10.2); MAGNESIUM 2.2 mg/dl (1.7-2.5); PHOSPHORUS 4.1 mg/dl (2.5-4.9)
--- NOTE | 2016-07-12 08:16 | CONS ---
Date/Time of Note Date/Time of Note DATE: 07/12/16 TIME: 08:12 Assessment/Plan Assessment/Plan Additional Assessment/Plan 1. Renal fx is stable, will dc IV 2. Elev Potassium, will give additional Kayexalate, I modified diet yesterday to avoid hi K foods (received 1 dose of Vasotec yesterday) 3. Facial cellulitis much improved although WBC still inc 4. I rev his elevated BP, he only wants to take clonidine, will inc dose Consultation Date/Type/Reason Admit Date/Time Jul 05, 2016 at 15:12 Type of Consultation: ID Detailed Summary Respiratory: No shortness of breath Cardiovascular: No chest pain, No lightheadedness Gastrointestinal: no complaints, other (constipated and feels bloated) Genitourinary: no complaints Skin: erythema, other (facial pain is better) Exam/Review of Systems Vital Signs Vitals Vital Signs Date Time Temp Pulse Resp B/P Pulse Ox O2 Delivery O2 Flow Rate FiO2 07/11/16 20:00 98.3 67 19 189/79 94 07/10/16 20:00 Room Air Intake and Output 07/11/16 07/11/16 07/12/16 15:00 23:00 07:00 Intake Total 2355 ml 1685 ml Output Total 950 ml 1500 ml Balance 1405 ml 185 ml Exam Neck: No jvd Respiratory: clear to auscultation Cardiovascular: regular rate and rhythm Gastrointestinal: soft Extremities: No edema (and no calf tend) Skin: other (facial erythema and scabs much improved) Results Result Diagram: 07/12/16 0510 07/12/16 0510 Results 24 hrs Laboratory Tests Test 07/11/16 12:03 07/12/16 05:10 Lab Scanned Report REFERENCE LAB Anion Gap 15 Basophils # 0.0 Basophils % 0.1 Blood Morphology Comment Blood Urea Nitrogen 56 H Calcium Level 8.6 Carbon Dioxide Level 26 Chloride Level 109 Creatinine 1.35 H Eosinophils # 0.5 Eosinophils % 2.7 Glucose Level 83 Hematocrit 34.3 L Hemoglobin 11.6 L Lymphocytes # 1.6 Lymphocytes % 9.7 L Magnesium Level 2.2 Mean Corpuscular Hemoglobin 29.0 Mean Corpuscular Hemoglobin Concent 33.8 Mean Corpuscular Volume 85.8 Mean Platelet Volume 7.6 Monocytes # 1.7 H Monocytes % 9.9 Neutrophils # 13.1 H Neutrophils % 77.6 H Nucleated Red Blood Cells # 0.0 Nucleated Red Blood Cells % 0.0 Phosphorus Level 4.1 Platelet Count 266 Potassium Level 5.5 H Red Blood Count 4.00 L Red Cell Distribution Width 15.8 H Sodium Level 144 White Blood Count 16.9 H Medications Medications Current Medications Ondansetron HCl (Zofran Inj) 4 mg Q6H PRN IV NAUSEA AND/OR VOMITING; Start 07/05 at 17:30 Acetaminophen (Tylenol Tab) 650 mg Q6H PRN PO PAIN LEVEL 1-3 OR FEVER; Start at 17:30 Morphine Sulfate (morphine) 4 mg Q4H PRN IV pain Last administered on 05:38; Admin Dose 4 MG; Start 07/05/16 at 17:30 Heparin Sodium (Porcine) (Heparin (5000 Units/0.5 ml)) 5,000 unit Q12 SC Last administered on 07/11/16 20:22; Admin Dose 5,000 UNIT; Start 07/05/16 at 21:00 Nicotine (Nicoderm 21 Mg/ 24hr) 1 patch DAILY TRANSDERM Last administered on 08:48; Admin Dose 1 PATCH; Start 07/06/16 at 19:30 Acetaminophen/ Hydrocodone Bitart ([place] (5/325)) 1 tab Q4H PRN PO moderate pain Last administered on 07/12/16 02:19; Admin Dose 1 TAB; Start 07/06/16 at 21:30 Fluconazole (Diflucan) 100 mg DAILY NGT Last administered on 07/11/16 08:47; Admin Dose 100 MG; Start 07/07/16 at 14:30 Nystatin (Nystatin Susp) 5 ml QID PO Last administered on 07/11/16 08:47; Admin Dose 5 ML; Start 07/07/16 at 17:00 Neomycin/ Polymyxin/ Bacitracin 1 applic 1 applic BID TOP Last administered on 07/11/16 20:22; Admin Dose 1 APPLIC; Start 07/07/16 at 21:00 Dextrose/Sodium Chloride (D5-1/4ns) 1,000 ml @ 50 mls/hr Q20H IV Last administered on 07/12/16 02:14; Admin Dose 50 MLS/HR; Start 07/10/16 at 08:30 Levofloxacin (Levaquin) 500 mg DAILY@06 PO Last administered on 07/12/16 05:37 ; Admin Dose 500 MG; Start 07/11/16 at 06:00 Clonidine (Catapres) 0.1 mg TID PO Last administered on 07/11/16 20:20; Admin Dose 0.1 MG; Start 07/11/16 at 09:00 Miscellaneous Information 1 ONCE ONCE XX ; Start 07/12/16 at 10:00; Stop at 10:01 Vancomycin HCl (Vancocin) 250 ml @ 125 mls/hr Q12H IVPB Last administered on 22:29; Admin Dose 125 MLS/HR; Start 07/11/16 at 23:00 Hydralazine HCl (Apresoline) 10 mg Q6H PRN IV ELEVATED BLOOD PRESSURE Last administered on 07/11/16 22:29; Admin Dose 10 MG; Start 07/11/16 at 22:00 SWATHI MCCULLOUGH MD Jul 12, 2016 08:16
[2016-07-12 08:20] VITALS: BP 175/85; RESP 18
[2016-07-12] MEDS ORDERED: NA POLYST SULFON 15 GM/60 ML BTL PO ONE (08:30)
[2016-07-12] MEDS: FLUCONAZOLE 100 MG TAB NGT SCH (09:04)
[2016-07-12] MEDS: NYSTATIN SUSP 5 ML CUP PO SCH ×4 (09:05→19:40)
[2016-07-12] MEDS: NICOTINE (21 MG/24 HR) PATCH TRANSDERM SCH (09:06)
[2016-07-12] MEDS: NEOMYC/POLYMYX/BACIT 30 GM OINT TOP SCH ×2 (09:06→19:41)
[2016-07-12] MEDS: HEPARIN 5,000 UNIT/0.5 ML SYG SC SCH ×2 (09:07→19:42)
[2016-07-12] MEDS: NACL 0.9% 3 ML SYG IV SCH ×3 (09:32→17:53)
[2016-07-12] MEDS: VANCOMYCIN 1 GM in NS 250 ML IVPB SCH (11:00)
--- NOTE | 2016-07-12 12:50 | CONS ---
Date/Time of Note Date/Time of Note DATE: 07/12/16 TIME: 12:49 Consult Date/Type/Reason Admit Date/Time Jul 05, 2016 at 15:12 Type of Consultation: ID Subjective alert, eating lunch, no fevers, nad Objective Vital Signs Date Time Temp Pulse Resp B/P Pulse Ox O2 Delivery O2 Flow Rate FiO2 07/12/16 08:20 98.6 75 18 175/85 98 07/10/16 20:00 Room Air Intake and Output 07/11/16 07/11/16 07/12/16 15:00 23:00 07:00 Intake Total 2355 ml 1685 ml Output Total 950 ml 1500 ml Balance 1405 ml 185 ml Results/Medications Result Diagram: 07/12/16 0510 07/12/16 0510 Results 24 hrs Laboratory Tests Test 07/12/16 05:10 07/12/16 09:20 Anion Gap 15 Basophils # 0.0 Basophils % 0.1 Blood Morphology Comment Blood Urea Nitrogen 56 H Calcium Level 8.6 Carbon Dioxide Level 26 Chloride Level 109 Creatinine 1.35 H Eosinophils # 0.5 Eosinophils % 2.7 Glucose Level 83 Hematocrit 34.3 L Hemoglobin 11.6 L Lymphocytes # 1.6 Lymphocytes % 9.7 L Magnesium Level 2.2 Mean Corpuscular Hemoglobin 29.0 Mean Corpuscular Hemoglobin Concent 33.8 Mean Corpuscular Volume 85.8 Mean Platelet Volume 7.6 Monocytes # 1.7 H Monocytes % 9.9 Neutrophils # 13.1 H Neutrophils % 77.6 H Nucleated Red Blood Cells # 0.0 Nucleated Red Blood Cells % 0.0 Phosphorus Level 4.1 Platelet Count 266 Potassium Level 5.5 H Red Blood Count 4.00 L Red Cell Distribution Width 15.8 H Sodium Level 144 White Blood Count 16.9 H Vancomycin Level Trough 16.1 Medications Current Medications Ondansetron HCl (Zofran Inj) 4 mg Q6H PRN IV NAUSEA AND/OR VOMITING; Start 07/05 at 17:30 Acetaminophen (Tylenol Tab) 650 mg Q6H PRN PO PAIN LEVEL 1-3 OR FEVER; Start at 17:30 Morphine Sulfate (morphine) 4 mg Q4H PRN IV pain Last administered on t 09:33; Admin Dose 4 MG; Start 07/05/16 at 17:30 Heparin Sodium (Porcine) (Heparin (5000 Units/0.5 ml)) 5,000 unit Q12 SC Last administered on 07/12/16 09:07; Admin Dose 5,000 UNIT; Start 07/05/16 at 21:00 Nicotine (Nicoderm 21 Mg/ 24hr) 1 patch DAILY TRANSDERM Last administered on 09:06; Admin Dose 1 PATCH; Start 07/06/16 at 19:30 Acetaminophen/ Hydrocodone Bitart ([place] (5/325)) 1 tab Q4H PRN PO moderate pain Last administered on 07/12/16 10:24; Admin Dose 1 TAB; Start 07/06/16 at 21:30 Fluconazole (Diflucan) 100 mg DAILY NGT Last administered on 07/12/16 09:04; Admin Dose 100 MG; Start 07/07/16 at 14:30 Nystatin (Nystatin Susp) 5 ml QID PO Last administered on 07/12/16 09:05; Admin Dose 5 ML; Start 07/07/16 at 17:00 Neomycin/ Polymyxin/ Bacitracin (Neosporin Topical Oint) 1 applic BID TOP Last administered on 07/12/16 09:06; Admin Dose 1 APPLIC; Start 07/07/16 at 21:00 Levofloxacin 500 mg 500 mg DAILY@06 PO Last administered on 07/12/16 05:37; Admin Dose 500 MG; Start 07/11/16 at 06:00 Vancomycin HCl (Vancocin) 250 ml @ 125 mls/hr Q12H IVPB Last administered on 11:00; Admin Dose 125 MLS/HR; Start 07/11/16 at 23:00; Stop 07/12/16 at 14:00 Hydralazine HCl (Apresoline) 10 mg Q6H PRN IV ELEVATED BLOOD PRESSURE Last administered on 07/11/16 22:29; Admin Dose 10 MG; Start 07/11/16 at 22:00 Clonidine 0.2 mg 0.2 mg TID PO Last administered on 07/12/16 09:05; Admin Dose 0.2 MG; Start 07/12/16 at 09:00 Vancomycin HCl/ Sodium Chloride (Vancocin/NS) 150 ml @ 75 mls/hr Q12H IVPB ; Start 07/13/16 at 00:00 Assessment/Plan Chief Complaint/Hosp Course MICROBIOLOGY: All cx's negative ANTIMICROBIALS: Levaquin, Vanco, Diflucan DIAGNOSTICS: Renal ultrasound revealed normal appearance of the kidneys. Chest x-ray revealed no evidence for acute disease. CT of the face showed diffuse symmetric soft tissue swelling, moderate mucosal disease in the paranasal sinuses, no air fluid level is seen to suggest acute sinusitis. No periodontal abscess. Multiple mildly prominent lymph nodes in bilateral neck. PHYSICAL EXAMINATION: GENERAL: Well-nourished, well-developed, middle-aged man who is alert, in no distress. HEENT: Head atraumatic, normocephalic. Sclerae anicteric. The patient has multiple facial lesions and erythema, more on the right face with abrasion. Buccal mucosa pink with white thrush on his tongue. NECK: Supple. CHEST: Rise symmetrical. Breath sounds clear. ABDOMEN: Distended, soft. Bowel tones present. EXTREMITIES: Without cyanosis. ASSESSMENT: 1. Systemic inflammatory response syndrome with leukocytosis, patient received a dose of Decadron in the emergency department. 2. Facial cellulitis with facial abrasion==> improving. 3. Acute renal failure, possibly rhabdomyolysis. 4. Urinary tract infection as per urinalysis. 5. Metabolic acidosis. 6. Homelessness. 7. Oral thrush PLAN: Improving, facial swellin and erythema resolving, continue abx, anticipate dc on oral Doxycycline DW staff Problems: HIRAM MONROE NP Jul 12, 2016 12:50
--- NOTE | 2016-07-12 15:21 | PN ---
Date/Time of Note Date/Time of Note DATE: 07/12/16 TIME: 15:18 Assessment/Plan VTE Prophylaxis VTE Prophylaxis Intervention: heparin Lines/Catheters IV [facility]ter Type [facility]from [facility]): PICC Line Central line still needed: Yes Urinary Cath still in place: No Assessment/Plan Chief Complaint/Hosp Course 1. Sepsis secondary to facial cellulitis. Continue antibiotics as per infectious diseases. Continue with ID recommendations. 2. Cellulitis of the face. Continue ID recommendations. 3. Chronic kidney disease. Being followed by Nephrology. Avoid nephrotoxic medications. 4. Normocytic, normochromic anemia. Most probably anemia of chronic kidney disease. Monitor H&H closely. 5. Psoriasis. Continue local treatment. 6. Essential hypertension. Continue antihypertensives. 7. Nicotine use. Cessation advised. 8. Hepatitis B & C. No active issues. Monitor LFTs. Alpha-fetoprotein within normal limits. 9. Hyperkalemia. Will give a single dose of potassium exchange resin. The patient has been refusing Kayexalate. 10. Fluid, electrolytes and nutrition. Regular diet. 11. Deep venous thrombosis prophylaxis. Subcutaneous heparin. 12. Gastrointestinal prophylaxis, histamine 2 receptor blockers. 13. Plan. Give a single dose of Kayexalate. Continue antibiotics as per infectious diseases. Continue to monitor renal function closely. The patient has been refusing Kayexalate. Adjust antihypertensives to obtain optimal blood pressure control. Plan is to discharge the patient once the electrolytes are within normal limits and once the blood pressure is fairly well-controlled The case was discussed with Dr. Tabor. Problems: Subjective 24 Hr Interval Summary Free Text/Dictation "Feeling a little better." Exam/Review of Systems Vital Signs Vitals Vital Signs Date Time Temp Pulse Resp B/P Pulse Ox O2 Delivery O2 Flow Rate FiO2 07/12/16 08:20 98.6 75 18 175/85 98 07/10/16 20:00 Room Air Intake and Output 07/11/16 07/11/16 07/12/16 15:00 23:00 07:00 Intake Total 2355 ml 1685 ml Output Total 950 ml 1500 ml Balance 1405 ml 185 ml Exam GENERAL: This is an obese male patient lying in bed, somnolent. HEENT: Head normocephalic and atraumatic. Eyes: Anicteric sclerae. Conjunctivae clear. ENT: Nasal septum is midline. Facial erythema with some skin sloughing. Strabismus of the left eye. NECK: Supple. No JVD noticed. RESPIRATORY: Bilaterally clear to auscultation. No adventitious breath sounds heard. No use of accessory muscles of respiration. CARDIAC: Regular rate and rhythm. No murmurs heard. ABDOMEN: Soft, nontender, nondistended. Bowel sounds positive in all 4 quadrants. GENITOURINARY: Deferred. EXTREMITIES: No cyanosis, no clubbing, no edema. Peripheral pulses are palpable. NEUROLOGIC: The patient is awake and alert. Cranial nerves grossly intact. Results Result Diagram: 07/12/16 0510 07/12/16 0510 Results 24 hrs Laboratory Tests Test 07/12/16 05:10 07/12/16 09:20 Anion Gap 15 Basophils # 0.0 Basophils % 0.1 Blood Morphology Comment Blood Urea Nitrogen 56 H Calcium Level 8.6 Carbon Dioxide Level 26 Chloride Level 109 Creatinine 1.35 H Eosinophils # 0.5 Eosinophils % 2.7 Glucose Level 83 Hematocrit 34.3 L Hemoglobin 11.6 L Lymphocytes # 1.6 Lymphocytes % 9.7 L Magnesium Level 2.2 Mean Corpuscular Hemoglobin 29.0 Mean Corpuscular Hemoglobin Concent 33.8 Mean Corpuscular Volume 85.8 Mean Platelet Volume 7.6 Monocytes # 1.7 H Monocytes % 9.9 Neutrophils # 13.1 H Neutrophils % 77.6 H Nucleated Red Blood Cells # 0.0 Nucleated Red Blood Cells % 0.0 Phosphorus Level 4.1 Platelet Count 266 Potassium Level 5.5 H Red Blood Count 4.00 L Red Cell Distribution Width 15.8 H Sodium Level 144 White Blood Count 16.9 H Vancomycin Level Trough 16.1 Medications Medications Current Medications Ondansetron HCl (Zofran Inj) 4 mg Q6H PRN IV NAUSEA AND/OR VOMITING; Start 07/05 at 17:30 Acetaminophen (Tylenol Tab) 650 mg Q6H PRN PO PAIN LEVEL 1-3 OR FEVER; Start at 17:30 Morphine Sulfate (morphine) 4 mg Q4H PRN IV pain Last administered on t 13:33; Admin Dose 4 MG; Start 07/05/16 at 17:30 Heparin Sodium (Porcine) (Heparin (5000 Units/0.5 ml)) 5,000 unit Q12 SC Last administered on 07/12/16 09:07; Admin Dose 5,000 UNIT; Start 07/05/16 at 21:00 Nicotine (Nicoderm 21 Mg/ 24hr) 1 patch DAILY TRANSDERM Last administered on 09:06; Admin Dose 1 PATCH; Start 07/06/16 at 19:30 Acetaminophen/ Hydrocodone Bitart ([employer] (5/325)) 1 tab Q4H PRN PO moderate pain Last administered on 07/12/16 10:24; Admin Dose 1 TAB; Start 07/06/16 at 21:30 Fluconazole (Diflucan) 100 mg DAILY NGT Last administered on 07/12/16 09:04; Admin Dose 100 MG; Start 07/07/16 at 14:30 Nystatin (Nystatin Susp) 5 ml QID PO Last administered on 07/12/16 13:32; Admin Dose 5 ML; Start 07/07/16 at 17:00 Neomycin/ Polymyxin/ Bacitracin (Neosporin Topical Oint) 1 applic BID TOP Last administered on 07/12/16 09:06; Admin Dose 1 APPLIC; Start 07/07/16 at 21:00 Levofloxacin (Levaquin) 500 mg DAILY@06 PO Last administered on 07/12/16 05:37 ; Admin Dose 500 MG; Start 07/11/16 at 06:00 Hydralazine HCl (Apresoline) 10 mg Q6H PRN IV ELEVATED BLOOD PRESSURE Last administered on 07/11/16 22:29; Admin Dose 10 MG; Start 07/11/16 at 22:00 Clonidine 0.2 mg 0.2 mg TID PO Last administered on 07/12/16 13:32; Admin Dose 0.2 MG; Start 07/12/16 at 09:00 Vancomycin HCl/ Sodium Chloride (Vancocin/NS) 150 ml @ 75 mls/hr Q12H IVPB ; Start 07/13/16 at 00:00 ESTUARDO FLORIAN NP Jul 12, 2016 15:20
[2016-07-12 19:52] VITALS: BP 196/100
[2016-07-12 20:09] VITALS: BP 198/106; RESP 18
[2016-07-12] MEDS: hydrALAzine 20 MG INJ IV PRN (22:07)
[2016-07-12 23:39] VITALS: BP 162/80; PULSE 84; RESP 20
[2016-07-13] MEDS: HYDROCODONE/APAP (5/325) TAB PO PRN ×3 (00:08→13:23)
[2016-07-13] MEDS: VANCOMYCIN 750 MG in SOD CHLORIDE 0.9% 150 ML IVPB SCH ×2 (00:08→12:00)
[2016-07-13] MEDS: morphine 2 MG INJ IV PRN ×2 (02:36→06:47)
[2016-07-13] MEDS: LEVOFLOXACIN 500 MG TAB PO SCH (06:46)
[2016-07-13 07:26] VITALS: BP 161/95; RESP 20
[2016-07-13 08:53] LABS: BASOPHILS % 0.1 % (0.0-2.0); EOSINOPHILS # 0.6 10^3/ul (0.0-0.5); EOSINOPHILS % 3.6 % (0.0-7.0); HEMATOCRIT 32.8 % (42.0-52.0); HEMOGLOBIN 11.1 g/dl (14.0-18.0); LYMPHOCYTES # 1.3 10^3/ul (0.8-2.9); LYMPHOCYTES % 8.3 % (15.0-51.0); MEAN CORPUSCULAR HEMOGLOBIN 28.9 pg (29.0-33.0); MEAN CORPUSCULAR HGB CONC 33.8 g/dl (32.0-37.0); MEAN CORPUSCULAR VOLUME 85.5 fl (82.0-101.0); MEAN PLATELET VOLUME 7.4 fl (7.4-10.4); MONOCYTE # 1.5 10^3/ul (0.3-0.9); MONOCYTES % 9.3 % (0.0-11.0); NEUTROPHIL # 12.6 10^3/ul (1.6-7.5); NEUTROPHILS % 78.7 % (39.0-77.0); PLATELET COUNT 250 10^3/UL (140-440); RED BLOOD COUNT 3.84 10^6/ul (4.70-6.10); RED CELL DISTRIBUTION WIDTH 15.6 % (11.5-14.5)
[2016-07-13 09:05] LABS: POTASSIUM 5.6 mmol/L (3.5-5.1)
[2016-07-13 09:07] LABS: CREATININE 1.62 mg/dl (0.61-1.24)
[2016-07-13 09:08] LABS: CALCIUM 8.7 mg/dl (8.4-10.2)
[2016-07-13] MEDS: NICOTINE (21 MG/24 HR) PATCH TRANSDERM SCH (09:24)
[2016-07-13] MEDS: FLUCONAZOLE 100 MG TAB NGT SCH (09:24)
[2016-07-13] MEDS: NYSTATIN SUSP 5 ML CUP PO SCH ×2 (09:24→13:23)
[2016-07-13] MEDS: NEOMYC/POLYMYX/BACIT 30 GM OINT TOP SCH (09:24)
[2016-07-13] MEDS: HEPARIN 5,000 UNIT/0.5 ML SYG SC SCH (09:26)
[2016-07-13 09:34] LABS: CONDITION 1; LH ANALYZER COMMENTS 1
--- NOTE | 2016-07-13 09:36 | CONS ---
Date/Time of Note Date/Time of Note DATE: 07/13/16 TIME: 09:34 Assessment/Plan Assessment/Plan Additional Assessment/Plan 1. BP not well controlled, rev with pt, to reduce catapres and added amlodipine (mouth is very dry) 2. Sl rise in Scr, ? Vanco related, doubt dry ([place] ordered), cont Vanco ? 3. Facial cellulitis resolving 4. K+ elevated, rev with pt need for kayexelate Consultation Date/Type/Reason Admit Date/Time Jul 05, 2016 at 15:12 Type of Consultation: ID Detailed Summary Respiratory: No cough, No shortness of breath Cardiovascular: No chest pain Gastrointestinal: constipation Genitourinary: no complaints Skin: other (facial pain cont to improve) Exam/Review of Systems Vital Signs Vitals Vital Signs Date Time Temp Pulse Resp B/P Pulse Ox O2 Delivery O2 Flow Rate FiO2 07/13/16 07:26 99.1 83 20 161/95 94 07/12/16 23:39 Room Air Intake and Output 07/12/16 07/12/16 07/13/16 15:00 23:00 07:00 Intake Total 1080 ml 990 ml Output Total 1800 ml 1500 ml Balance -720 ml -510 ml Exam Neck: No jvd Respiratory: clear to auscultation Cardiovascular: regular rate and rhythm Gastrointestinal: soft Extremities: No edema (adn no calf tend) Results Result Diagram: 07/12/16 0510 07/13/16 0825 Results 24 hrs Laboratory Tests Test 07/13/16 08:25 Anion Gap 13 Blood Urea Nitrogen 52 H Calcium Level 8.7 Carbon Dioxide Level 26 Chloride Level 106 Creatinine 1.62 H Glucose Level 210 # Potassium Level 5.6 H Sodium Level 139 Medications Medications Current Medications Ondansetron HCl (Zofran Inj) 4 mg Q6H PRN IV NAUSEA AND/OR VOMITING; Start 07/05 at 17:30 Acetaminophen (Tylenol Tab) 650 mg Q6H PRN PO PAIN LEVEL 1-3 OR FEVER; Start at 17:30 Morphine Sulfate (morphine) 4 mg Q4H PRN IV pain Last administered on t 06:47; Admin Dose 4 MG; Start 07/05/16 at 17:30 Heparin Sodium (Porcine) (Heparin (5000 Units/0.5 ml)) 5,000 unit Q12 SC Last administered on 07/13/16 09:26; Admin Dose 5,000 UNIT; Start 07/05/16 at 21:00 Nicotine (Nicoderm 21 Mg/ 24hr) 1 patch DAILY TRANSDERM Last administered on 09:24; Admin Dose 1 PATCH; Start 07/06/16 at 19:30 Acetaminophen/ Hydrocodone Bitart ([place] (5/325)) 1 tab Q4H PRN PO moderate pain Last administered on 07/13/16 07:45; Admin Dose 1 TAB; Start 07/06/16 at 21:30 Fluconazole (Diflucan) 100 mg DAILY NGT Last administered on 07/13/16 09:24; Admin Dose 100 MG; Start 07/07/16 at 14:30 Nystatin (Nystatin Susp) 5 ml QID PO Last administered on 07/13/16 09:24; Admin Dose 5 ML; Start 07/07/16 at 17:00 Neomycin/ Polymyxin/ Bacitracin (Neosporin Topical Oint) 1 applic BID TOP Last administered on 07/13/16 09:24; Admin Dose 1 APPLIC; Start 07/07/16 at 21:00 Levofloxacin (Levaquin) 500 mg DAILY@06 PO Last administered on 07/13/16 06:46 ; Admin Dose 500 MG; Start 07/11/16 at 06:00 Hydralazine HCl (Apresoline) 10 mg Q6H PRN IV ELEVATED BLOOD PRESSURE Last administered on 07/12/16 22:07; Admin Dose 10 MG; Start 07/11/16 at 22:00 Clonidine 0.2 mg 0.2 mg TID PO Last administered on 07/13/16 09:25; Admin Dose 0.2 MG; Start 07/12/16 at 09:00 Vancomycin HCl/ Sodium Chloride (Vancocin/NS) 150 ml @ 75 mls/hr Q12H IVPB Last administered on 07/13/16 00:08; Admin Dose 75 MLS/HR; Start 07/13/16 at 00 :00 SWATHI MCCULLOUGH MD Jul 13, 2016 09:36
[2016-07-13] MEDS ORDERED: NA POLYST SULFON 15 GM/60 ML BTL PO ONE (10:00)
[2016-07-13] MEDS ORDERED: AMLODIPINE 5 MG TAB PO SCH (10:00)
--- NOTE | 2016-07-13 10:18 | PDOCDIS ---
Discharge Instructions DIAGNOSIS Discharge Diagnosis: Facial cellulitis CONDITION Patient Condition: Stable HOME CARE INSTRUCTIONS: Special Diet: Regular, preferably renal FOLLOW UP/APPOINTMENTS Appointments Nixon Maria MD Specialty: Internal Medicine Office Address: [address] [place], [place] [id number] Office OTHER ORDERS: Other Orders: 1. Take medications as per prescription. 2. Complete the course of antibiotics. 3. Regular, preferably low potassium diet. 4. Follow-up with your primary care physician 1 week. If you do not have a primary care physician, please call Dr. Nixon Maria's office. 5. Activities as tolerated. ESTUARDO FLORIAN NP Jul 13, 2016 10:17
[2016-07-13] MEDS ORDERED: DOXY100T20 PO (10:21)
[2016-07-13] MEDS ORDERED: AMLO-145 PO (10:21)
[2016-07-13] MEDS ORDERED: CLON-379 PO (10:21)
[2016-07-13] MEDS ORDERED: HYDR-3498 PO (10:26)
[2016-07-13] MEDS ORDERED: INSULIN REGULAR, HUMAN 100 UNIT/1 ML 3ML VIAL IV ONE (10:30)
[2016-07-13] MEDS ORDERED: DEXTROSE 50% 50 ML SYRINGE IV ONE (10:30)
[2016-07-13] MEDS ORDERED: morphine 4 MG/ML VIAL IV PRN (11:00)
--- NOTE | 2016-07-13 14:05 | DS ---
DATE OF ADMISSION: 07/05/2016 DATE OF DISCHARGE: 07/13/2016 FINAL DIAGNOSES 1. Status post sepsis secondary to facial cellulitis. 2. Cellulitis of the face. 3. Acute on chronic kidney disease. 4. Normocytic normochromic anemia, most probably anemia of chronic kidney disease. 5. Psoriasis. 6. Essential hypertension. 7. Nicotine use. 8. Hepatitis B and C. 9. Hyperkalemia. 10. Homelessness. CONSULTATIONS: 1. Dr. Leno Erickson, Infectious Disease. 2. Dr. Teo Wallace, Nephrology. 3. Carola Medina NP, Infectious Disease. HOSPITAL COURSE: This is a 55-year-old male who denied any significant past medical history, who came to the emergency room with chief complaint of facial swelling, crusting and redness. The patient was noticed to be febrile with a temperature of 102.9 in the emergency room. The patient was also noticed to have a leukocytosis with a WBC of 26.9. The patient underwent a face CT scan that showed diffuse symmetric soft tissue swelling and subcutaneous fatty stranding of the face with moderate mucosal disease in the paranasal sinuses and no evidence of periodontal abscess. Provided the patient's history of present illness and the diagnostic findings, a clinical decision was made to admit the patient to inpatient setting to have him further evaluated. The patient was also noticed to have a BUN and creatinine of 102 and 5.25, respectively. The patient was admitted to inpatient medical/surgical floor. A nephrology consult and infectious disease consult was obtained on this patient. The patient was maintained on antibiotics as per Infectious Disease. The patient's pancultures remained negative. The patient's facial cellulitis improved with antibiotic therapy. The patient had no evidence of any septic shock. The patient has underlying chronic kidney disease. However, the patient's kidney function was noticed to be worsened upon admission. The patient was being managed by Nephrology. All the nephrotoxic drugs were avoided on this patient. The patient's BUN and creatinine improved throughout the patient's hospital course. The patient had no evidence of any uremic encephalopathy or significant electrolyte imbalances that necessitated initiation of any hemodialysis. The patient's complement C3 was noted to be less than 40 with a complement C4 of 22. The patient's renal ultrasound showed normal appearance of the kidneys. The patient had normocytic normochromic anemia. This could be most probably anemia of chronic kidney disease. The patient's H and H remained stable and the patient did not require any blood transfusion. The patient also has a history of psoriasis. The patient was maintained on local treatment. The patient had underlying essential hypertension that was noticed to be uncontrolled. The patient was started on appropriate antihypertensives. The patient refused to take certain antihypertensives. Also, the patient's antihypertensives were adjusted multiple times to obtain optimal blood pressure control. The patient is a current nicotine user. The patient was advised on cessation. The patient was also noticed to have positive hepatitis B and C serology. The patient's LFTs were monitored closely. The patient did not have any significant transaminitis. The patient's alpha-fetoprotein was within normal limits. The patient was noticed to have hyperkalemia most probably secondary to worsening renal failure. The patient continued to refuse taking any potassium exchange resins. Finally, the patient was agreeable to take potassium exchange resins. The patient is currently homeless. Hence, the patient was seen by the clinical social work aide. The patient was instructed on the importance of going to a prison. However, the patient refused going to a homeless prison. The patient had a stable but prolonged hospital course. The patient is clinically stable to be discharged today. The patient's renal function is improving. The patient has no evidence of any sepsis. The patient was given Kayexalate already for his underlying hyperkalemia. The patient was reinforced on a renal diet. The patient's potassium level was within normal limits when the patient was on a renal diet. However, the patient did not want to follow a renal diet, and the patient was started on a regular diet, and that is what probably caused the patient's hyperkalemia. DISCHARGE DISPOSITION/PLAN: The patient will be discharged today. The patient was instructed to take medications as per prescription. He was instructed to complete the course of antibiotics. He was instructed to take a regular, preferably low-potassium diet. The patient was instructed to follow up with his primary care physician in 1 week. The patient was instructed to call Dr. Nixon Maria's office if he does not have a primary care physician. He was instructed to resume activities as tolerated. The patient was seen by physical therapy during this hospitalization, and physical therapy recommended no further skilled physical therapy needs and no DME recommendations. CONDITION AT DISCHARGE: Stable. DISCHARGE MEDICATIONS 1. Amlodipine 5 mg p.o. b.i.d. 2. Clonidine 0.1 mg p.o. t.i.d. 3. Doxycycline 100 mg p.o. b.i.d. x7 days. 4. Lithopolis 5/325 one tablet p.o. q.6h. p.r.n. pain (#20 tablets). PERTINENT LABORATORY AND DIAGNOSTIC DATA: 1. Blood culture x2. Negative. 2. Urine culture. Negative. 3. Stool for C. difficile. Negative. 4. 07/07/2016, insertion of right upper extremity PICC line. 5. Brain CT scan. Normal noncontrast CT scan of the brain. 6. Abdominal ultrasound. Fatty metamorphosis of the liver. 7. Latest CBC: WBC 16.0, hemoglobin 11.1, hematocrit 32.8, platelet count 250. 8. Latest BMP: Sodium 139, potassium 5.6, chloride 106, carbon dioxide 26, anion gap 13, BUN 52, creatinine 1.6, glucose 210, calcium 8.7. 9. Stool for OB x1, negative. 10. Hepatitis B serology, hepatitis B core total antibody reactive. Hepatitis B surface antigen negative. 11. Hepatitis C antibody reactive. 12. Complement C3 less than 40, complement C4 of 22. 13. Alpha-fetoprotein 1.1. At this time, I would like to thank all the consultants for seeing the patient and providing clinical recommendations. The case and management of this patient was fully discussed with Dr. Mata. Approximately 45 minutes was spent on coordinating the discharge on this patient. ESTUARDO MATA MD, AM/JACOB Conf#: [id number] DID#: [id number]
== END 2016-07-13 13:40 | disposition home or self-care (01) | DRG 872 ==
LOC: E/R 11:29 → PP2 15:12
PROVIDERS: ADMIT Family Medicine; ATTEND Family Medicine
PROC: 02HV33Z Insertion of Infusion Device into Superior Vena Cava, Percutaneous Approach (ICD-10-PCS; principal; 2016-07-07)
DX: A41.9 Sepsis, unspecified organism (principal); N17.9 Acute kidney failure, unspecified; E87.2 Acidosis; E88.09 Other disorders of plasma-protein metabolism, not elsewhere classified; B37.0 Candidal stomatitis; L03.211 Cellulitis of face; N39.0 Urinary tract infection, site not specified; B18.2 Chronic viral hepatitis C; D72.829 Elevated white blood cell count, unspecified; F17.210 Nicotine dependence, cigarettes, uncomplicated; Z59.0 Homelessness; D64.9 Anemia, unspecified; I12.9 Hypertensive chronic kidney disease with stage 1 through stage 4 chronic kidney disease, or unspecified chronic kidney disease; N18.9 Chronic kidney disease, unspecified; E87.5 Hyperkalemia
CPT/HCPCS: 36569; 36600; 70450; 70486; 71010; 76700; 76775; 76937; 80048; 80053; 80202; 81001; 81003; 82105; 82140; 82270; 82436; 82550; 82553; 82570; 82575; 82595; 82803; 83605; 83735; 84100; 84132; 84133; 84156; 84300; 84484; 85025; 85610; 85651; 85730; 86021; 86038; 86160; 86162; 86320; 86325; 86704; 86803; 87040; 87045; 87075; 87086; 87340; 93005; 96374; 96375; 97162; J0360; J1100; J1815; J2270; J2543; J3370; J7030; J7050; J7070